=== PATIENT | female | born 1975 | race Caucasian/White ===

== ENCOUNTER → 2020-09-03 08:10 | Outpatient (BNVA) | payer OTHER, SELFPAY | PROVIDERS: PCP Internal Medicine; Visit Provider Surgery | DX: Z76.89 Persons encountering health services in other specified circumstances (principal) ==

== ENCOUNTER → 2020-09-05 08:23 | Outpatient (BNVA) | payer OTHER, SELFPAY | PROVIDERS: PCP Internal Medicine; Visit Provider Surgery | DX: Z76.89 Persons encountering health services in other specified circumstances (principal) ==

== ENCOUNTER 2020-09-05 08:50 | Outpatient (REF) | payer OTHER, SELFPAY ==
[2020-09-11 14:27] LABS: H Pylori Breath Test DETECTED (NOT DETECTED)
== END 2020-09-05 08:51 | disposition home or self-care (01) ==
LOC: HO.LNP 08:50
PROVIDERS: Visit Provider Surgery
DX: Z01.818 Encounter for other preprocedural examination (principal)
CPT/HCPCS: 83013

== ENCOUNTER 2020-09-06 08:20 | Outpatient (REF) | payer OTHER, SELFPAY ==
--- NOTE | 2020-09-06 08:30 | ECG_ITS ---
Test Reason : R06.02 - Shortness of breath Blood Pressure : / mmHG Vent. Rate : 076 BPM Atrial Rate : 076 BPM P-R Int : 164 ms QRS Dur : 076 ms QT Int : 380 ms P-R-T Axes : 047 -03 027 degrees QTc Int : 427 ms Normal sinus rhythm Low voltage QRS Borderline ECG When compared with ECG of 10-SEP-2019 09:39, No significant change was found Referred By: Astrid Guerra Electronically Signed By:SUE FARRELL MD
--- NOTE | 2020-09-06 09:03 | XR_ITS ---
EXAMINATION: XR CHEST 2 VIEWS CLINICAL INFORMATION: Shortness of breath. COMPARISON: Chest radiographs dated 09/10/2019. TECHNIQUE: Frontal and lateral views of the chest were obtained. FINDINGS: The heart, great vessels, pulmonary vasculature and mediastinum are normal. The lungs show no focal infiltrate, effusion or pneumothorax. There is no acute osseous abnormality. There is mild lower thoracic spondylosis. IMPRESSION: No active cardiopulmonary disease.
[2020-09-06 10:08] LABS: C Reactive Protein 1.83 mg/dL (< or = 0.50)
[2020-09-06 10:14] LABS: Alanine Aminotransferase 24 U/L (0-31); Alkaline Phosphatase 80 U/L (39-117); Anion Gap 11 (12-20); Aspartate Amino Transferase 21 U/L (5-31); Bilirubin Total 0.3 mg/dL (0.0-1.0); Blood Urea Nitrogen 10 mg/dL (9-16); Calcium 8.5 mg/dL (8.4-10.2); Carbon Dioxide 25 mmol/L (22-29); Chloride 106 mmol/L (96-108); Cholesterol 156 mg/dL; Estimated Glomerular Filt Rate > 60; Glucose Fasting 106 mg/dL (60-99); HDL Cholesterol 47 mg/dL; Iron 36 mcg/dL (30-160); LDL Cholesterol Calculated 90 mg/dl; Percent Iron Saturation 9 % (15-50); Potassium 4.2 mmol/l (3.3-5.1); Sodium 138 mmol/L (135-145); Total Iron Binding Capacity 400 mcg/dL (228-428); Total Protein 6.8 g/dL (6.5-8.0); Triglycerides 96 mg/dL; Unsaturated Iron Binding 364 ug/dL
[2020-09-06 10:35] LABS: Thyroid Stimulating Hormone 2.01 mIU/mL (0.32-4.0); Vitamin D 25-OH Total 26.2 ng/mL (>30)
[2020-09-09 16:32] LABS: Calcium (PTHI) 8.7 mg/dL (8.6-10.2); PTHI 102 pg/mL (14-64)
[2020-09-09 17:21] LABS: Zinc 64 mcg/dL (60-130)
[2020-09-09 21:14] LABS: Vitamin B12 248 pg/mL (200-900)
[2020-09-11 12:31] LABS: Vitamin B1 6 nmol/L (8-30)
[2020-09-11 17:11] LABS: Vitamin A 37 mcg/dL (38-98)
== END 2020-09-06 08:21 | disposition home or self-care (01) ==
LOC: HO.LAB 08:20
PROVIDERS: PCP Internal Medicine; Visit Provider Surgery
DX: Z01.818 Encounter for other preprocedural examination (principal); Z01.810 Encounter for preprocedural cardiovascular examination; R06.02 Shortness of breath
CPT/HCPCS: 71046; 80053; 80061; 82306; 82607; 83540; 83970; 84425; 84443; 84590; 84630; 86140; 93005

== ENCOUNTER → 2020-09-17 08:33 | Outpatient (BNVA) | payer OTHER, SELFPAY | PROVIDERS: PCP Internal Medicine; Visit Provider Surgery | DX: Z76.89 Persons encountering health services in other specified circumstances (principal) ==

== ENCOUNTER 2020-09-20 15:16 | Outpatient (REF) | payer OTHER, SELFPAY | END 2020-09-20 15:17 | disposition home or self-care (01) | LOC: HO.LAB 15:16 | PROVIDERS: Visit Provider Internal Medicine | DX: Z13.89 Encounter for screening for other disorder (principal) ==

== ENCOUNTER → 2020-10-14 08:52 | Outpatient (BNVA) | payer OTHER, SELFPAY | PROVIDERS: PCP Advanced Practice Midwife; Visit Provider Physician Assistant | DX: Z76.89 Persons encountering health services in other specified circumstances (principal) ==

== ENCOUNTER 2020-10-16 08:00 | Outpatient (RCR) | payer OTHER, SELFPAY ==
[2020-10-16 15:32] LABS: H Pylori Breath Test NOT DETECTED (NOT DETECTED)
== END 2021-01-14 07:20 | disposition home or self-care (01) ==
LOC: HO.OT 08:00
PROVIDERS: Visit Provider Internal Medicine
DX: M25.521 Pain in right elbow (principal)
CPT/HCPCS: 83013; 97035; 97110; 97140; 97165; 97530

== ENCOUNTER 2020-10-16 15:20 | Outpatient (REF) | payer OTHER, SELFPAY ==
[2020-10-22 12:46] LABS: Vitamin B1 13 nmol/L (8-30)
== END 2020-10-16 15:21 | disposition home or self-care (01) ==
LOC: HO.LAB 15:20
PROVIDERS: PCP Internal Medicine; Visit Provider Surgery
DX: E51.9 Thiamine deficiency, unspecified (principal)
CPT/HCPCS: 84425

== ENCOUNTER → 2020-11-11 09:09 | Outpatient (BNVA) | payer OTHER, SELFPAY | PROVIDERS: PCP Internal Medicine; Referring Provider Advanced Practice Midwife; Visit Provider Surgery | DX: Z76.89 Persons encountering health services in other specified circumstances (principal) ==

== ENCOUNTER → 2020-11-26 08:16 | Outpatient (BNVA) | payer OTHER, SELFPAY | PROVIDERS: PCP Internal Medicine; Visit Provider Surgery | DX: Z76.89 Persons encountering health services in other specified circumstances (principal) ==

== ENCOUNTER → 2020-12-12 08:07 | Outpatient (BNVA) | payer OTHER, SELFPAY | PROVIDERS: PCP Internal Medicine; Visit Provider Surgery | DX: Z76.89 Persons encountering health services in other specified circumstances (principal) ==

== ENCOUNTER → 2020-12-18 08:53 | Outpatient (BNVA) | payer OTHER, SELFPAY | PROVIDERS: PCP Internal Medicine; Visit Provider Internal Medicine Endocrinology, Diabetes & Metabolism ==

== ENCOUNTER 2020-12-20 07:08 | Outpatient (REF) | payer OTHER, SELFPAY ==
[2020-12-20 08:03] LABS: Alanine Aminotransferase 28 U/L (0-31); Alkaline Phosphatase 88 U/L (39-117); Anion Gap 12 (12-20); Aspartate Amino Transferase 15 U/L (5-31); Bilirubin Total 0.4 mg/dL (0.0-1.0); Blood Urea Nitrogen 14 mg/dL (9-16); Calcium 9.1 mg/dL (8.4-10.2); Carbon Dioxide 26 mmol/L (22-29); Chloride 105 mmol/L (96-108); Estimated Glomerular Filt Rate > 60; Glucose Fasting 93 mg/dL (60-99); Magnesium 2.1 mg/dL (1.6-2.6); Phosphorus 3.8 mg/dL (2.7-4.5); Potassium 4.1 mmol/l (3.3-5.1); Sodium 139 mmol/L (135-145)
[2020-12-20 08:26] LABS: Free T4 (Free Thyroxine) 0.72 ng/dL (0.71-1.85); Thyroid Stimulating Hormone 3.56 uIU/mL (0.32-4.0); Vitamin D 25-OH Total 25.3 ng/mL (>30)
[2020-12-21 09:32] LABS: DHEA Sulfate 124 mcg/dL (19-231); Thyroglobulin Antibodies <1 IU/mL (< or = 1); Thyroid Peroxidase Antibodies 810 IU/mL (<9)
[2020-12-23 18:41] LABS: PTHI 53 pg/mL (14-64)
[2020-12-23 22:38] LABS: Adrenocorticotropic Hormone 37 pg/mL (6-50)
[2020-12-24 13:07] LABS: Alkaline Phosphatase Bone 10.5 mcg/L (5.0-18.8)
[2020-12-25 11:08] LABS: Vitamin D 25-OH, D2 <4 ng/mL; Vitamin D 25-OH, D3 38 ng/mL; Vitamin D 25-OH, Total 38 ng/mL (30-100)
[2020-12-25 21:48] LABS: 11-Deoxycortisol, LC/MS 53 ng/dL
[2020-12-26 00:13] LABS: VITAMIN D (1,25 OH) D3 57 pg/mL; Vit D (1,25-Dihydroxy) Total 57 pg/mL (18-72); Vitamin D (1,25 OH) D2 <8 pg/mL
[2020-12-26 14:27] LABS: Testosterone, Free 3.6 pg/mL (0.1-6.4); Testosterone, Total 29 ng/dL (2-45)
== END 2020-12-20 07:09 | disposition home or self-care (01) ==
LOC: HO.LAB 07:08
PROVIDERS: PCP Internal Medicine; Visit Provider Internal Medicine Endocrinology, Diabetes & Metabolism
DX: E28.1 Androgen excess (principal); E21.3 Hyperparathyroidism, unspecified
CPT/HCPCS: 36415; 80053; 82024; 82306; 82533; 82627; 82634; 82652; 83498; 83735; 83970; 84075; 84100; 84402; 84403; 84439; 84443; 86376; 86800

== ENCOUNTER 2020-12-23 15:30 | Outpatient (REF) | payer OTHER, SELFPAY ==
[2020-12-23 18:13] LABS: Creatinine, 24Hr Urine 1.8 G/Day (1.0-2.0); Total Volume 24 Hour Urine 1900 mL
[2020-12-25 17:12] LABS: Calcium, 24 Hr Urine 251 mg/24 h; Calcium/Creatinine Ratio 133 mg/g creat (30-275); Creatinine 24Hr Urine 1.88 g/24 h (0.50-2.15)
== END 2020-12-23 15:31 | disposition home or self-care (01) ==
LOC: HO.LNP 15:30
PROVIDERS: Visit Provider Internal Medicine Endocrinology, Diabetes & Metabolism
DX: E21.3 Hyperparathyroidism, unspecified (principal)
CPT/HCPCS: 82340; 82570

== ENCOUNTER → 2020-12-30 08:17 | Outpatient (BNVA) | payer OTHER, SELFPAY | PROVIDERS: PCP Internal Medicine; Visit Provider Surgery ==

== ENCOUNTER 2021-01-02 07:36 | Outpatient (REF) | payer OTHER, SELFPAY ==
[2021-01-03 13:13] LABS: Calcium (PTHI) 9.2 mg/dL (8.6-10.2); PTHI 62 pg/mL (14-64)
[2021-01-03 17:33] LABS: Calcium, Ionized 5.1 mg/dL (4.8-5.6)
[2021-01-03 23:06] LABS: Adrenocorticotropic Hormone <5 pg/mL (6-50)
[2021-01-08 09:33] LABS: Dexamethasone 556 ng/dL
== END 2021-01-02 07:37 | disposition home or self-care (01) ==
LOC: HO.LAB 07:36
PROVIDERS: Absent Provider Internal Medicine Endocrinology, Diabetes & Metabolism; PCP Internal Medicine; Visit Provider Internal Medicine
DX: E66.01 Morbid (severe) obesity due to excess calories (principal); E21.3 Hyperparathyroidism, unspecified
CPT/HCPCS: 36415; 80299; 82024; 82330; 82533; 83970

== ENCOUNTER 2021-01-07 15:46 | Outpatient (REF) | payer OTHER, SELFPAY ==
[2021-01-14 16:17] LABS: Saliva Cortisol <0.03 mcg/dL
== END 2021-01-07 15:47 | disposition home or self-care (01) ==
LOC: HO.LNP 15:46
PROVIDERS: Visit Provider Internal Medicine Endocrinology, Diabetes & Metabolism
DX: E66.01 Morbid (severe) obesity due to excess calories (principal)
CPT/HCPCS: 82530

== ENCOUNTER → 2021-01-16 09:58 | Outpatient (BNVA) | payer OTHER, SELFPAY | PROVIDERS: PCP Internal Medicine; Visit Provider Physician Assistant ==

== ENCOUNTER → 2021-01-21 13:52 | Outpatient (BNVA) | payer OTHER, SELFPAY | PROVIDERS: PCP Internal Medicine; Visit Provider Surgery | DX: Z01.818 Encounter for other preprocedural examination (principal); R06.02 Shortness of breath ==

== ENCOUNTER 2021-01-29 05:20 | Inpatient (IN) | payer OTHER, SELFPAY ==
[2021-01-14 13:01] VITALS: BMI 46.6
[2021-01-14 13:15] VITALS: BP 127/83; PULSE 75; RESP 20; O2SAT 97
--- NOTE | 2021-01-14 13:24 | P.CONAN_ITS ---
Documented by User: Leonora Pichardo 01/23/21 11:02 HPI - Anesthesia Eval Consult details Narrative: 45yo F for Gastrectomy Sleeve Hyperparathyroid: OK to proceed per endocrine workload encounter [facility] Active Problems Active Problems: All Active Problems (Updated 01/14/21 @ 13:11 by Elvira Edouard) Super obesity (Acute) Shortness of Breath (Acute) Body mass index (BMI) of 45.0-49.9 in adult (Acute) Annual physical exam (Acute) Elevated androgen levels (Acute) Hypovitaminosis D (Acute) Hyperparathyroidism (Acute) Morbid obesity due to excess calories (Acute) Right elbow pain (Acute) Past Medical History Medical History Elevated androgen levels Hyperparathyroidism Hypovitaminosis D Morbid obesity due to excess calories Morbid obesity with BMI of 50.0-59.9, adult Right elbow pain Super obesity Family History Family History Father Unknown family medical history Mother Diabetes HTN (hypertension) Brother No problems noted. Daughter Morbid obesity due to excess calories Daughter No problems noted. Son No problems noted. Sister No problems noted. Family history of problems with anesthesia: No Surgical History Surgical History History of bilateral breast reduction surgery History of section complicating History of laparoscopic cholecystectomy Hx of tubal ligation History of Problems with Anesthesia: No Social History Social History Household Members: Significant Other and Children Are you a primary childcare director to a significant other at home: No Do you presently have visiting nurse or other home services: No Alcohol intake: never Smoking Status: Never smoker Use of substances other than those prescribed or required for medical reasons: No Have you been hit, kicked, punched, or otherwise hurt by someone within the past year? 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 >4 mets with dami Meds Allergies Allergy/AdvReac Type Severity Reaction Status Date / Time aspirin [Aspirin] Allergy Severe swelling Verified 01/21/21 14:35 Home Medications Medication Instructions Recorded Confirmed Last Taken Type cholecalciferol (vitamin D3) 50 50 mcg PO DAILY 09/03/20 01/21/21 Unknown History mcg (2,000 unit) capsule multivitamin 1 tab PO DAILY 12/12/20 01/21/21 Unknown History Exam Exam Date and Time: January 14, 2021 1324 Height,Weight and Vital Signs: Height 5 ft 2 in Weight 115.666 kg Last Vital Signs Pulse 75 01/14/21 13:15 Resp 20 01/14/21 13:15 BP 127/83 01/14/21 13:15 Pulse Ox 97 01/14/21 13:15 Pertinent Lab Results Pertinent Lab Results: Lab Results 01/21/21 01/21/21 01/21/21 Range/Units 15:55 15:55 15:55 WBC 10.7 (4.8-10.8) X10*3/uL RBC 4.64 (4.20-5.50) X10*6/uL Hgb 10.8 L (12.0-16.0) g/dl Hct 34.7 L (37-47) % MCV 74.8 L (80-98) fL MCH 23.3 L (27.0-33.0) pg MCHC 31.1 (31.0-35.0) g/dl RDW 19.4 H (11.0-16.0) % Plt Count 303 (160-400) X10*3/uL MPV 11.2 (9.4-12.3) fL Immature Gran % (Auto) 0.3 (0.0-0.4) % Neut % (Auto) 71.8 (45-73) % Lymph % (Auto) 21.5 (20-40) % [place] % (Auto) 4.2 (2-11) % Eos % (Auto) 1.8 (0-4) % Baso % (Auto) 0.4 (0-2) % Lymph # (Auto) 2.3 (1.2-4.9) X10*3/uL [place] # (Auto) 0.5 (0.1-1.2) X10*3/uL Eos # (Auto) 0.2 (0.0-0.4) X10*3/uL Baso # (Auto) 0.0 (0.0-0.2) X10*3/uL Abs Immat Gran (auto) 0.03 (0.00-0.03) X10*3/uL Absolute Neuts (auto) 7.7 (2.0-8.3) X10*3/uL Absolute Nucleated RBC 0.000 (0.0-0.012) X10*3/uL Nucleated RBC % (auto) 0.0 (0.0-0.2) /100WBC PT 11.8 (10.8-13.0) SEC INR 1.0 (0.9-1.1) APTT 34.7 (24.1-38.0) SEC Sodium (135-145) mmol/L Potassium (3.3-5.1) mmol/L Chloride (96-108) mmol/L Carbon Dioxide (22-29) mmol/L Anion Gap (12-20) BUN (9-16) mg/dL Creatinine (0.5-1.4) mg/dL Estim Creat Clear Calc Estimated GFR Random Glucose (60-115) mg/dL Calcium (8.4-10.2) mg/dL Albumin (3.5-5.0) g/dL 25-OH Vitamin D Total (>30) ng/mL Urine Color PINK Urine Appearance HAZY Urine pH 7.5 (5.0-8.0) Ur Specific [place] 1.015 (1.005-1.025) Urine Protein NEG (NEG-TRACE) MG/DL Urine Glucose (UA) NEG (NEG) MG/DL Urine Ketones NEG (NEG) MG/DL Urine Blood 3+ H (NEG) Urine Nitrite NEG (NEG) Ur Leukocyte Esterase NEG (NEG) Urine RBC 50-75 H (0) /HPF Urine WBC 0 (0-4) /HPF Ur Squamous Epith Cells NONE /LPF Urine Bacteria NONE /LPF Blood Type Antibody Screen 01/21/21 01/21/21 Range/Units 15:55 15:55 WBC (4.8-10.8) X10*3/uL RBC (4.20-5.50) X10*6/uL Hgb (12.0-16.0) g/dl Hct (37-47) % MCV (80-98) fL MCH (27.0-33.0) pg MCHC (31.0-35.0) g/dl RDW (11.0-16.0) % Plt Count (160-400) X10*3/uL MPV (9.4-12.3) fL Immature Gran % (Auto) (0.0-0.4) % Neut % (Auto) (45-73) % Lymph % (Auto) (20-40) % [place] % (Auto) (2-11) % Eos % (Auto) (0-4) % Baso % (Auto) (0-2) % Lymph # (Auto) (1.2-4.9) X10*3/uL [place] # (Auto) (0.1-1.2) X10*3/uL Eos # (Auto) (0.0-0.4) X10*3/uL Baso # (Auto) (0.0-0.2) X10*3/uL Abs Immat Gran (auto) (0.00-0.03) X10*3/uL Absolute Neuts (auto) (2.0-8.3) X10*3/uL Absolute Nucleated RBC (0.0-0.012) X10*3/uL Nucleated RBC % (auto) (0.0-0.2) /100WBC PT (10.8-13.0) SEC INR (0.9-1.1) APTT (24.1-38.0) SEC Sodium 137 (135-145) mmol/L Potassium 4.6 (3.3-5.1) mmol/L Chloride 104 (96-108) mmol/L Carbon Dioxide 25 (22-29) mmol/L Anion Gap 13 (12-20) BUN 17 H (9-16) mg/dL Creatinine 0.64 (0.5-1.4) mg/dL Estim Creat Clear Calc 135.2 Estimated GFR > 60 Random Glucose 98 (60-115) mg/dL Calcium 9.0 (8.4-10.2) mg/dL Albumin 4.1 (3.5-5.0) g/dL 25-OH Vitamin D Total 30.2 (>30) ng/mL Urine Color Urine Appearance Urine pH (5.0-8.0) Ur Specific [place] (1.005-1.025) Urine Protein (NEG-TRACE) MG/DL Urine Glucose (UA) (NEG) MG/DL Urine Ketones (NEG) MG/DL Urine Blood (NEG) Urine Nitrite (NEG) Ur Leukocyte Esterase (NEG) Urine RBC (0) /HPF Urine WBC (0-4) /HPF Ur Squamous Epith Cells /LPF Urine Bacteria /LPF Blood Type O Positive Antibody Screen NEGATIVE Narrative Narrative: EKG Normal sinus rhythm Low voltage QRS Borderline ECG When compared with ECG of 10-SEP-2019 09:39, No significant change was found Airway Mallampati Class: I TM Dist: >3cm Neck ROM: Full Loose/Missing/Broken Teeth: No Heart: RRR Lungs: CTAB Assessment and Plan Assessment Anesthesia Assessment: Anesthesia Plan Discussed and PAT Visit Documented by User: Rnadell Maher 01/29/21 09:16 PMF Past Medical History Medical History Elevated androgen levels Hyperparathyroidism Hypovitaminosis D Morbid obesity due to excess calories Morbid obesity with BMI of 50.0-59.9, adult Right elbow pain Super obesity Family History Family History Father Unknown family medical history Mother Diabetes HTN (hypertension) Brother No problems noted. Daughter Morbid obesity due to excess calories Daughter No problems noted. Son No problems noted. Sister No problems noted. Surgical History Surgical History History of bilateral breast reduction surgery History of section complicating History of laparoscopic cholecystectomy Hx of tubal ligation Social History Social History Household Members: Significant Other and Children Are you a primary childcare director to a significant other at home: No Do you presently have visiting nurse or other home services: No Alcohol intake: never Smoking Status: Never smoker Use of substances other than those prescribed or required for medical reasons: No Have you been hit, kicked, punched, or otherwise hurt by someone within the past year? 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 Meds Allergies Allergy/AdvReac Type Severity Reaction Status Date / Time aspirin [Aspirin] Allergy Severe swelling Verified 01/21/21 14:35 Home Medications Medication Instructions Recorded Confirmed Last Taken Type cholecalciferol (vitamin D3) 50 50 mcg PO DAILY 09/03/20 01/21/21 Unknown History mcg (2,000 unit) capsule multivitamin 1 tab PO DAILY 12/12/20 01/21/21 Unknown History Exam Airway Mallampati Class: II TM Dist: >3cm Neck ROM: Full Loose/Missing/Broken Teeth: No Heart: [id number]+[id number] Lungs: cta b/l Assessment and Plan Assessment Anesthesia Assessment: Anesthesia Plan Discussed, PAT Visit and Chart Reviewed Final Anesthetic Review NPO: Yes ASA Class: III Final Preanesthetic Review: No Changes in Pt Med Stat, Meds/Allgs Chart Reviewed, Consent Obtained/Reviewed and Anes Risks/Benef Reviewed Patient Risk: Intermediate Procedure Risk: Low Assessment/Block/Sedation in SS: Assess/Block/Sedation-SS Anesthetic Plan Anesthetic Plan: GA and Agree w/ Assess. and Plan Disposition: Standard PACU
[2021-01-21 16:15] LABS: MANUAL DIFF FLAG NO
[2021-01-21 16:16] LABS: Glucose Urine UA NEG (NEG); Leukocyte Esterase Urine NEG (NEG); Nitrite Urine NEG (NEG); PH 7.5 (5.0-8.0); Specific Gravity - Urine 1.015 (1.005-1.025); Urine Blood 3+ (NEG); Urine Ketones NEG (NEG); Urine Protein NEG (NEG-TRACE)
[2021-01-21 16:19] LABS: Basophils Percent Auto 0.4 % (0-2); Eosinophils Absolute Auto 0.2 X10*3/uL (0.0-0.4); Eosinophils Percent Auto 1.8 % (0-4); Hematocrit 34.7 % (37-47); Hemoglobin 10.8 g/dl (12.0-16.0); Imm Gran Abs Auto 0.03 X10*3/uL (0.00-0.03); Imm Gran Pct Auto 0.3 % (0.0-0.4); Lymphocytes Absolute Auto 2.3 X10*3/uL (1.2-4.9); Lymphocytes Percent Auto 21.5 % (20-40); Mean Corpuscular HGB Conc 31.1 g/dl (31.0-35.0); Mean Corpuscular Hemoglobin 23.3 pg (27.0-33.0); Mean Corpuscular Volume 74.8 fL (80-98); Mean Platelet Volume 11.2 fL (9.4-12.3); Monocytes Absolute Auto 0.5 X10*3/uL (0.1-1.2); Monocytes Percent Auto 4.2 % (2-11); Neutrophils Absolute Auto 7.7 X10*3/uL (2.0-8.3); Neutrophils Percent Auto 71.8 % (45-73); Platelet Count 303 X10*3/uL (160-400); Red Blood Count 4.64 X10*6/uL (4.20-5.50); Red Cell Distribution Width 19.4 % (11.0-16.0); White Blood Count 10.7 X10*3/uL (4.8-10.8)
[2021-01-21 16:36] LABS: Albumin Level 4.1 g/dL (3.5-5.0); Anion Gap 13 (12-20); Blood Urea Nitrogen 17 mg/dL (9-16); Carbon Dioxide 25 mmol/L (22-29); Chloride 104 mmol/L (96-108); Creatinine Clr Calc Pharmacy 135.2; Estimated Glomerular Filt Rate > 60; Glucose Random 98 mg/dL (60-115); Potassium 4.6 mmol/L (3.3-5.1); Sodium 137 mmol/L (135-145)
[2021-01-21 16:45] LABS: Prothrombin Time 11.8 SEC (10.8-13.0)
[2021-01-21 16:47] LABS: Partial Thromboplastin Time 34.7 SEC (24.1-38.0)
[2021-01-21 16:49] LABS: Appearance Urine HAZY; Color Urine PINK
[2021-01-21 16:58] LABS: Vitamin D 25-OH Total 30.2 ng/mL (>30)
[2021-01-21 17:18] LABS: RBC Urine 50-75 /HPF (0); WBC Urine 0 /HPF (0-4)
--- NOTE | 2021-01-28 16:47 | MHC.SHP ---
Pre-Procedural Eval Section B Chief Complaint: obesity Allergies: Allergies Allergy/AdvReac Type Severity Reaction Status Date / Time aspirin [Aspirin] Allergy Severe swelling Verified 01/21/21 14:35 Plan I have reviewed the history and physical and performed a pertinent physical examination on my patient. No changes have occurred unless specified.
[2021-01-29] VITALS (19 sets, daily range): BP systolic 123–151; BP diastolic 72–96; PULSE 75–97; RESP 14–20; TEMP 36.2–37.2; O2SAT 94–100
[2021-01-29 07:41] LABS: COVID-19 Test Negative (Negative); IDNOW Serial# 9DD0AD1C
[2021-01-29] MEDS: Lactated Ringers 1,000 ML 100 ML IVCONT (07:55)
--- NOTE | 2021-01-29 10:01 | PM.DS ---
DS: Providers Provider Date of Service: 01/30/21 Date of admission: 01/29/21 05:20 Primary care physician: Maria Isabel Tolliver MD DS: Medications Discharge Medications Home Medications: Home Medications Medication Instructions Recorded Confirmed cholecalciferol (vitamin D3) 50 50 mcg PO DAILY 09/03/20 01/21/21 mcg (2,000 unit) capsule multivitamin 1 tab PO DAILY 12/12/20 01/21/21 Previous Rx's Medication Instructions Recorded acetaminophen 500 mg tablet 1,000 mg PO Q6H PRN #30 tab 01/21/21 docusate sodium 100 mg capsule 100 mg PO BID #30 cap 01/21/21 famotidine 20 mg tablet 20 mg PO DAILY #30 tab 01/21/21 ondansetron HCl 4 mg tablet 4 mg PO Q6H PRN #30 tab 01/21/21 simethicone 80 mg chewable tablet 80 mg PO TID-QID PRN #30 tab 01/21/21 DS: Summary Time Spent with Patient Time attestation: DATE OF SERVICE: January 29, 2021 ADMITTING DIAGNOSES: morbid obesity DISCHARGE DIAGNOSES: same, s/p laparoscopic sleeve gastrectomy and repair of hiatal hernia PROCEDURE PERFORMED: DISCHARGE MEDICATIONS: 1. Simethicone 80mg q4h prn gas 2. Ondansetron 4mg po tid prn nausea 3. Famotidine 20mg po bid 4. Docusate sodium 100mg po bid DISCHARGE INSTRUCTIONS: The patient should continue on the stage III bariatric diet, which includes 3 protein shakes of at least 20- 30g of protein on a daily basis. The patient was encouraged to avoid drinking liquids with her protein shakes. She should wait 30-45 minutes in between her meals and drinking water. She should drink at least 40-60 ounces of water on a daily basis. She should ambulate while at home to avoid any blood clots in her lower extremities. She should call with any questions or concerns such as increase in abdominal pain, persistent nausea, vomiting, redness and drainage from her incisions, fever, chills, shortness of breast, or chest pain beyond what is normal for her. The patient should avoid all heavy lifting greater than 5 pounds for the next 4 weeks. The patient is already scheduled to follow up with me in 2 weeks' time, but should call the office with any questions prior to that follow up appointment. The patient should not advance her diet until she is seen in the office for the 2 week appointment. HOSPITAL COURSE: The patient was admitted after undergoing laparoscopic sleeve gastrectomy. She was started on stage II diet and was tolerating well without nausea or vomiting. Her pain was controlled on IV Dilaudid. All labs were within normal limits. On post-operative day #2 she was feeling better, nausea and epigastric pain improved and she was tolerating stage III bariatric diet well. She was discharged home. DISCHARGE DISPOSITION: Home.Total time spent providing and/or coordinating discharge services: Discharge coordination time: Less than 30 minutes Physical Exam Vital Signs: Vital Signs: Last Vital Signs Temp 97.3 F 01/29/21 07:35 Pulse 78 01/29/21 07:35 Resp 16 01/29/21 07:35 BP 123/84 01/29/21 07:35 Pulse Ox 97 01/29/21 07:35 Body Mass Index 46.6 DS: Data Data Completed and Pending Pending studies at discharge: Pending at discharge 01/29/21 08:49 Surgical [PTH] Routine Labs on day of discharge: Laboratory Results - last 24 hr 01/29/21 07:13 COVID-19 ([facility]) Negative COVID-19 Clin Com See Note Discharge Plan Discharge Anticipated Discharge Date/Time: 01/30/21 11:58 Patient Disposition: Home, Self-Care Referrals: Maria Isabel Reed MD [Primary Care Provider] - Discharge Medications: Continued acetaminophen [Tylenol Extra Strength] 500 mg tablet 1,000 mg PO Q6H PRN (Reason: pain) Qty: 30 RF: 1 famotidine [Pepcid AC] 20 mg tablet 20 mg PO DAILY Qty: 30 RF: 1 simethicone [Gas Relief (simethicone)] 80 mg tablet,chewable 80 mg PO TID-QID PRN (Reason: abdominal distention) Qty: 30 RF: 1 ondansetron HCl [Zofran] 4 mg tablet 4 mg PO Q6H PRN (Reason: nausea and vomiting) Qty: 30 RF: 1 docusate sodium [Colace] 100 mg capsule 100 mg PO BID Qty: 30 RF: 1 Discontinued multivitamin Tablet 1 tab PO DAILY RF: 0 cholecalciferol (vitamin D3) 50 mcg (2,000 unit) capsule 50 mcg PO DAILY RF: 0 Discharge Orders: Discharge Order (Routine); Ordered 01/30/21 Ordered By: Astrid Guerra Diet: other Activity on Discharge: No heavy lifting Stand Alone Forms: Patient Portal Discharge page Activity Restrictions/Additional Instructions: No tub baths, sex or returning to work until discussed at first post op appointment. No exercise, alcohol, tobacco or illegal drug use. Continue to use incentive spirometer hourly while awake. Walk in home for 5- 10 minutes every 2 hours during the first week. Continue phase 3 diet until first post op appointment. Follow all instructions in the bariatric handbook and call with any questions.Discharge Instructions 1. Please call your doctor or come back to the emergency room should any new symptoms arise. 2. You will receive a courtesy call from [facility] 24-48 hours after discharge. 3. Activity: abstain from alcohol, practice limited stair climbing, no bending, no driving, no exercise, no illicit substances, no lifting, no sex, no tub bath, no work. 4. Diet: continue stage 3 protein shakes until your [address] Guerra. 5. Dressing Change/Wound Care: Your incision is covered by surgical glue. If the area is tender, you may apply an ice pack for short intervals (no more than 20 minutes on, followed by at least 20 minutes off). Do not apply heat. Do not use creams, lotions, or topical antibiotics unless instructed to do so by your surgeon. These can cause infection or allergic reaction. 6. Call your doctor if: - Your temperature exceeds 101.5 F - You experience excessive pain or swelling - You have an unexpected reaction to medication - You have excessive bleeding - You experience continued vomiting/nausea - Your incision begins to separate - Your incision shows signs of infection such as increased redness, swelling, excessive pain, heat, or drainage (light blood or clear fluid is normal) 7. General instructions: No lifting greater than 5 lbs for the next 4 weeks[address] within 24 hours of taking narcotic pain medications. If you do not move your bowels in the next 2 days, please take milk of magnesia over the counter. Please follow the post op diet and do not advance your diet until you are seen in the office in about 2 weeks. Please walk around your home every hour or two to prevent blood clots from forming in your legs. You do not need to wake from sleeping to walk. Please sleep in a bed or couch to prevent kinking at the hips and knees. Please take your incentive spirometer (your lung cnc machine programmer) home with you and use it for the next few days to prevent pneumonias. You may shower, no hot tubs, baths or swimming pools. Please call the office with any questions or concerns such as increasing abdominal pain, fever, chills, shortness of breath, chest pain, leg pain or swelling, or redness or drainage from your incisions. Please stay on stage 3 diet which includes sugar free clear liquids such as ice pops and jello and broth and crystal light. Avoid all carbonation. Please drink 3 protein shakes with at least 25-30 grams of protein daily or 3 of the Celebrate 4:1 shakes which can be purchased in our office. The Celebrate shakes have all of the bariatric vitamins you need if you consume these shakes. If you are drinking other protein shakes, you will need to purchase the Celebrate multivitamins and calcium that we provide in the office (they will provide all the vitamins you need). Please make sure you are consuming at least 40-60 ounces of water in addition to your 3 protein shakes daily. Do not hesitate to contact the office with any questions at . Care Plan Goals: weight loss Health Concerns: morbid obesity Plan of Treatment: see discharge instructions Discharge Date/Time: 01/30/21 09:56
--- NOTE | 2021-01-29 10:04 | PM.OP ---
Brief Operative Note Date of Service: 01/29/21 Pre-op diagnosis: Morbid obesity, BMI 47.6 Post-op diagnosis: other (Same and hiatal hernia) Procedure: Laparoscopic sleeve gastrectomy, hiatal hernia repair, Lisy block, and intraoperative endoscopy Implants: covidien shilpa Surgeon: Astrid Guerra MD Anesthesia: GETA Cleaner And Preparer: Yanna Shi Estimated blood loss (mL): 10 Pathology: other (Partial gastrectomy) Condition: stable Disposition: PACU
--- NOTE | 2021-01-29 10:06 | P.OP_ITS ---
Operative Note Operative Note Date of Service: 01/29/21 Narrative: Patient was brought into the operating room and placed on the operating room table in the supine position. General anesthesia was induced. Normal DVT prophylaxis was instituted and the patient received 2 grams of cefotetan preoperatively. The abdomen was then prepped and draped in the normal sterile fashion. A safety time-out was performed. A mixture of 1% lidocaine with epinephrine and ??% Marcaine plain was used to a nesthetize the planned incision site in the left upper quadrant. A #11 scalpel was used to make a 5 mm left upper quadrant transverse incision through which a veress needle was placed. Three pops were heard going through the fascia. A saline drop test was used to confirm that the veress needle was intraabdominal. An optiview technique was then used to place a 5mm port in the left upper quadrant. A 5 mm 30 degree laproscope was then placed through this port and the abdominal cavity was surveyed and was normal with the exception of a single omental adhesion to the umbilicus. We later lysis adhesion with the LigaSure device. The patient was placed in reverse Trendelenburg positioning. A paola liver retractor was then placed in the subxyphoid position and it was used to hold up the left lobe of the liver to the abdominal wall. This was secured to the bed using the liver retractor schafer. A ECTOR block was then performed for pain control on the right side of the abdomen. A 5 mm port was placed in the right upper quadrant near the falciform ligament. A 12 mm port was then placed in the mid epigastrium. One additional 5 mm port was placed in the left upper quadrant just to the left of the placement of the first port. I then performed a ECTOR block on the left side of the abdomen. I then removed the epigastric fat pad; there was a 3 cm anterior hiatal hernia noted. I reapproximated the left and right crura with a total of 2 stitches of 2-0 ethibond and a laparoscopic knot pusher. There was no residual hiatal hernia. I then opened up the angle of His. We then gained entry into the lesser sac about 4-5 cm from the pylorus. I had anesthesia place a 34 [place] orogastric tube into the distal antrum to use as a sizing tool for gastric pouch size. I divided the short gastric vessels up to the angle of His. We then started the creation of the gastric pouch by firing a 60 mm purple load endostapler up the stomach about 4-5 cm from the pylorus. We completed the creation of the gastric pouch using a total of 4 firings of a 60 mm purple load stapler. We had anesthesia remove the orogastric tube, then we clamped across the distal antrum using a fired 60 mm endostapler. We flattened the patient and then instilled normal saline surrounding the newly created staple line. I then performed an on-table endoscopy. I passed the gastroscopy into the posterior oropharynx and down the esophagus evaluating the esophageal mucosa which was normal. There was no evidence of hiatal hernia. I passed the gastroscope into the gastric pouch and insufflated the gastric pouch. There was healthy pink mucosa and no evidence of active bleeding. There was no evidence of leak on laparoscopy. I desufflated the gastric pouch and removed the endoscope. I removed the endostapler from the abdomen and suctioned the fluid from the left upper quadrant. I then removed the partial gastrectomy specimen through the epigastric 12 mm port site. I reapproximated the 12 mm port using a 0 maxon suture with a laparoscopic suture passer. I instilled local anesthetic into the fascial closure site and tied the suture down at a pressure of 8-10 mm of Hg. There was no residual fascial defect. We removed the liver retractor and the left upper quadrant 5 mm ports under direct visualization. There was no evidence of any active bleeding. I desufflated the abdomen through the last remaining port and removed the laparoscope and 5 mm port. We reapproximated all incisions with a 4-0 monocryl subcuticular stitch. We cleaned and dried the abdominal skin and applied dermabond skin glue. All count were correct at the end of the case. The patient was awake and in stable condition prior to extubation and transfer to the recovery room.
[2021-01-29] MEDS: HYDROmorphone HCl 0.5 MG/0.5 ML SYRINGE IVPUSH ×2 (10:19→10:29)
[2021-01-29] MEDS: fentaNYL citrate/PF 100 MCG/2 ML VIAL 50 MCG IVPUSH (10:40)
[2021-01-29] MEDS: Famotidine/PF 20 MG/2 ML VIAL IVPUSH ×2 (10:54→21:29)
[2021-01-29] MEDS: Lactated Ringers 1,000 ML 125 ML IVCONT ×2 (12:36→20:07)
[2021-01-29] MEDS: ondansetron HCL 4 MG/2 ML VIAL IVPUSH ×2 (12:36→20:07)
[2021-01-29 13:17] LABS: Cholesterol 140 mg/dL; HDL Cholesterol 47 mg/dL; LDL Cholesterol Calculated 80 mg/dl; Triglycerides 67 mg/dL
[2021-01-29] MEDS: 0.9 % Sodium Chloride Flush 3 ML SYRINGE IVFLUSH (20:07)
[2021-01-29] MEDS: cefoTEtan disodium 2 GM in 0.9 % Sodium Chloride 50 ML IV (20:07)
[2021-01-30 04:00] VITALS: BP 156/86; PULSE 73; RESP 16; TEMP 36.3; O2SAT 97
[2021-01-30] MEDS: Lactated Ringers 1,000 ML 125 ML IVCONT (04:07)
[2021-01-30] MEDS: ondansetron HCL 4 MG/2 ML VIAL IVPUSH (04:07)
[2021-01-30 04:54] LABS: MANUAL DIFF FLAG NO
[2021-01-30 05:01] LABS: Basophils Percent Auto 0.3 % (0-2); Hemoglobin 10.4 g/dl (12.0-16.0); Imm Gran Abs Auto 0.05 X10*3/uL (0.00-0.03); Imm Gran Pct Auto 0.4 % (0.0-0.4); Lymphocytes Absolute Auto 1.4 X10*3/uL (1.2-4.9); Lymphocytes Percent Auto 10.5 % (20-40); Mean Corpuscular HGB Conc 30.6 g/dl (31.0-35.0); Mean Corpuscular Hemoglobin 23.3 pg (27.0-33.0); Mean Corpuscular Volume 76.2 fL (80-98); Mean Platelet Volume 11.3 fL (9.4-12.3); Monocytes Absolute Auto 0.7 X10*3/uL (0.1-1.2); Monocytes Percent Auto 5.3 % (2-11); Neutrophils Absolute Auto 11.1 X10*3/uL (2.0-8.3); Neutrophils Percent Auto 83.5 % (45-73); Platelet Count 243 X10*3/uL (160-400); Red Blood Count 4.46 X10*6/uL (4.20-5.50); Red Cell Distribution Width 19.2 % (11.0-16.0); White Blood Count 13.3 X10*3/uL (4.8-10.8)
[2021-01-30 05:51] LABS: Anion Gap 15 (12-20); Blood Urea Nitrogen 9 mg/dL (9-16); Calcium 8.4 mg/dL (8.4-10.2); Carbon Dioxide 19 mmol/L (22-29); Chloride 108 mmol/L (96-108); Creatinine Clr Calc Pharmacy 121.8; Estimated Glomerular Filt Rate > 60; Glucose Random 107 mg/dL (60-115); Potassium 4.6 mmol/L (3.3-5.1); Sodium 137 mmol/L (135-145)
--- NOTE | 2021-01-30 07:32 | PM.PNGS ---
Subjective Subjective Date of Service: 01/30/21 Interval history: Pt awake and alert this am. Has been ambulating and voiding on her own. DId not start ICS until this am and now brings it up to 1500 ml. She has been tolerating phase 2 bariatric diet, no nausea, emesis or abd pain this am. Physical Exam Vital Signs: Vital Signs: Last Vital Signs Temp 97.3 F 01/30/21 04:00 Pulse 73 01/30/21 04:00 Resp 16 01/30/21 04:00 BP 156/86 H 01/30/21 04:00 Pulse Ox 97 01/30/21 04:00 Body Mass Index 46.6 Const: General: cooperative, healthy appearing, comfortable, well developed, alert and awake Nutritional Appearance: obese Orientation/consciousness: patient oriented x3 Limitations: no limitations GI: Inspection: No distended and Yes incision (all clean and dry) Palpation (GI): Soft to palpation, not firm, nontender, no guarding, not rigid, no hernias and no masses Neuro: General: patient oriented x3 Extrem: General: Yes no pedal edema and Yes no calf tenderness Progress Note: A&P Assessment and plan (1) S/P laparoscopic sleeve gastrectomy: Problem details: POD #1 patient is doing quite well. She will be advanced to phase 3 diet now and will focus on ICS this am. Am labs pending, will review when resulted. Plan for discharge home later today after being seen by Dr. Guerra. Status: Acute (2) History of repair of hiatal hernia: Problem details: Follow all instructions for bariatric surgery. Status: Acute (3) Morbid obesity due to excess calories: Status: Acute Fall Risk Details Current Medications: Current Medications Generic Name Dose Route Start Last Admin Trade Name Freq PRN Reason Stop Dose Admin Famotidine 20 mg 01/29/21 12:06 01/29/21 21:29 Famotidine/Pf 20 Mg/2 Ml Vial IVPUSH 20 mg BID LINO Administration Hydromorphone HCl 0.25 mg 01/29/21 12:06 Hydromorphone Hcl 0.5 Mg/0.5 Ml Syringe IVPUSH Q4H PRN Pain, Moderate (Pain Scale 4-6 Lactated Ringer's 1,000 mls @ 75 mls/hr 01/29/21 12:06 01/30/21 04:07 Lr IVCONT 125 mls/hr .[id number] LINO Administration Acetaminophen 1,000 mg in 100 mls @ 16.7 mls/hr 01/29/21 12:06 01/30/21 02:03 Ofirmev IV 16.7 mls/hr .Q6H LINO Administration Metoclopramide HCl 10 mg 01/29/21 12:06 Metoclopramide Hcl 10 Mg/2 Ml Vial IVPUSH Q6H PRN Nausea Ondansetron HCl 4 mg 01/29/21 12:06 01/30/21 04:07 Ondansetron Hcl 4 Mg/2 Ml Vial IVPUSH 4 mg Q8H LINO Administration Sodium Chloride 3 ml 01/29/21 16:00 01/30/21 07:06 0.9 % Sodium Chloride Flush 3 Ml Syringe IVFLUSH Not Given QSHIFT LINO Time Spent With Patient Time: Total time spent is greater than 50% in coordination of care (as documented) at patient's floor/unit and/or counseling patient:15 minutes Time with patient: 15 - 24 minutes Procedures Date of Service Date of Service: 01/30/21
[2021-01-30 07:42] VITALS: BP 148/95; PULSE 86; RESP 16; TEMP 36.6; O2SAT 98
--- NOTE | 2021-01-30 09:00 | MHC.CM.PN ---
PATIENT IS DISCHARGED HOME WITH NO NEED FOR SERVICES. SHE IS FUNCTIONALLY INDEPENDENT. RN AWARE OF PLAN
[2021-01-30] MEDS: Famotidine/PF 20 MG/2 ML VIAL IVPUSH (09:04)
--- NOTE | 2021-01-30 16:36 | HO.POSTANES ---
Post Anesthesia Evaluation Post Anesthesia Evaluation Vital Signs: Vital Signs Temp Pulse Resp BP Pulse Ox 01/30/21 07:42 97.8 F 86 16 148/95 H 98 Anesthesia: General Endotracheal-GETA Mental Status: Awake Pain Control: Satisfactory Nausea/Vomiting: None Hydration: Adequate Anesthesia-Related Issues: No Anes. Related Issues
== END 2021-01-30 09:56 | disposition home or self-care (01) | DRG 403 ==
LOC: HO.SSSA 10:00 → HO.S3 10:44
PROVIDERS: Physician Assistant; Admitting Provider Surgery; PCP Internal Medicine; Visit Provider Surgery
PROC: 0DB64Z3 Excision of Stomach, Percutaneous Endoscopic Approach, Vertical (ICD-10-PCS; CPT 43845; principal; 2021-01-29 09:10)
DX: E66.01 Morbid (severe) obesity due to excess calories (principal); K44.9 Diaphragmatic hernia without obstruction or gangrene; Z68.42 Body mass index [BMI] 45.0-49.9, adult; Z20.822 Contact with and (suspected) exposure to COVID-19; Z79.899 Other long term (current) drug therapy
CPT/HCPCS: 36415; 80048; 80061; 81001; 82040; 82306; 85025; 85610; 85730; 86850; 86900; 86901; 87635; 88307; 88342; C1776; J0131; J1100; J1170; J2250; J2405; J3010

== ENCOUNTER → 2021-02-13 15:43 | Outpatient (BNVA) | payer OTHER, SELFPAY | PROVIDERS: PCP Internal Medicine; Visit Provider Surgery ==

== ENCOUNTER → 2021-03-13 13:25 | Outpatient (BNVA) | payer OTHER, SELFPAY | PROVIDERS: PCP Internal Medicine; Visit Provider Physician Assistant ==

== ENCOUNTER → 2021-07-15 09:38 | Outpatient (BNVA) | payer OTHER, SELFPAY | PROVIDERS: PCP Internal Medicine; Visit Provider Surgery ==

== ENCOUNTER → 2021-08-28 08:05 | Outpatient (BNVA) | payer OTHER, SELFPAY | PROVIDERS: PCP Internal Medicine; Visit Provider Dietitian, Registered | DX: E66.01 Morbid (severe) obesity due to excess calories (principal) | CPT/HCPCS: 97803 ==

== ENCOUNTER → 2021-11-10 07:59 | Outpatient (BNVA) | payer OTHER, SELFPAY | PROVIDERS: PCP Internal Medicine; Visit Provider Physician Assistant Surgical ==

== ENCOUNTER 2021-11-25 08:25 | Outpatient (REF) | payer OTHER, SELFPAY ==
[2021-11-25 08:44] LABS: MANUAL DIFF FLAG NO
[2021-11-25 09:21] LABS: Basophils Percent Auto 0.5 % (0-2); Eosinophils Absolute Auto 0.1 X10*3/uL (0.0-0.4); Eosinophils Percent Auto 1.5 % (0-4); Hematocrit 38.3 % (37.0-47.0); Imm Gran Abs Auto 0.01 X10*3/uL (0.00-0.03); Imm Gran Pct Auto 0.2 % (0.0-0.4); Lymphocytes Absolute Auto 1.8 X10*3/uL (1.2-4.9); Lymphocytes Percent Auto 29.2 % (20-40); Mean Corpuscular HGB Conc 31.3 g/dl (31.0-35.0); Mean Corpuscular Hemoglobin 25.8 pg (27.0-33.0); Mean Corpuscular Volume 82.2 fL (80.0-98.0); Mean Platelet Volume 11.5 fL (9.4-12.3); Monocytes Absolute Auto 0.4 X10*3/uL (0.1-1.2); Monocytes Percent Auto 5.7 % (2-11); Neutrophils Absolute Auto 3.9 x10*3/uL (2.0-8.3); Neutrophils Percent Auto 62.9 % (45-73); Platelet Count 282 X10*3/uL (160-400); Red Blood Count 4.66 X10*6/uL (4.20-5.50); Red Cell Distribution Width 14.6 % (11.0-16.0); White Blood Count 6.1 X10*3/uL (4.8-10.8)
[2021-11-25 09:30] LABS: Estimated Average Glucose 111 mg/dL; Hemoglobin A1c % 5.5 %
[2021-11-25 09:58] LABS: Alanine Aminotransferase 12 U/L (0-31); Albumin Level 4.4 g/dL (3.5-5.0); Alkaline Phosphatase 79 U/L (39-117); Anion Gap 11 (12-20); Aspartate Amino Transferase 15 U/L (5-31); Bilirubin Total 0.5 mg/dL (0.0-1.0); Blood Urea Nitrogen 12 mg/dL (9-16); C Reactive Protein 0.33 mg/dL (< or = 0.50); Calcium 9.8 mg/dL (8.4-10.2); Carbon Dioxide 27 mmol/L (22-29); Chloride 106 mmol/L (96-108); Cholesterol 189 mg/dL; Estimated Glomerular Filt Rate > 60; Glucose Fasting 95 mg/dL (60-99); HDL Cholesterol 53 mg/dL; Iron 64 mcg/dL (30-160); LDL Cholesterol Calculated 114 mg/dl; Percent Iron Saturation 14 % (15-50); Potassium 4.5 mmol/L (3.3-5.1); Sodium 139 mmol/L (135-145); Total Iron Binding Capacity 450 mcg/dL (228-428); Total Protein 7.2 g/dL (6.5-8.0); Triglycerides 110 mg/dL; Unsaturated Iron Binding 386 ug/dL
[2021-11-25 10:08] LABS: Thyroid Stimulating Hormone 2.14 uIU/mL (0.32-4.0); Vitamin D 25-OH Total 19.6 ng/mL (>30)
[2021-11-25 10:18] LABS: Vitamin B12 163 pg/mL (200-900)
[2021-11-28 07:32] LABS: Zinc 70 mcg/dL (60-130)
[2021-11-28 12:26] LABS: Vitamin B1 9 nmol/L (8-30)
[2021-12-01 10:56] LABS: Vitamin A 35 mcg/dL (38-98)
== END 2021-11-25 08:26 | disposition home or self-care (01) ==
LOC: HO.LAB 08:25
PROVIDERS: Visit Provider Surgery
DX: Z01.818 Encounter for other preprocedural examination (principal); K21.9 Gastro-esophageal reflux disease without esophagitis; Z90.3 Acquired absence of stomach [part of]
CPT/HCPCS: 36415; 80053; 80061; 82306; 82607; 83036; 83540; 84425; 84443; 84590; 84630; 85025; 86140

== ENCOUNTER → 2022-01-29 07:41 | Outpatient (BNVA) | payer OTHER, SELFPAY | PROVIDERS: PCP Internal Medicine; Referring Provider Physician Assistant; Visit Provider Physician Assistant Surgical ==

== ENCOUNTER 2022-02-23 08:04 | Outpatient (REF) | payer OTHER, SELFPAY ==
--- NOTE | ~2022-02-23 | MM_ITS ---
EXAMINATION: MM SCREENING DIGITAL BREAST TOMOSYNTHESIS, BILATERAL CLINICAL INFORMATION: Screening. Asymptomatic. Prior history reduction mammoplasty. The lifetime risk of breast cancer based on the Tyrer-Cuzick Model is 7%. COMPARISON: Mammography: 08/27/2020 (baseline) TECHNIQUE: Digital breast tomosynthesis is performed in both the craniocaudal and mediolateral oblique views along with computer-aided detection (CAD). Synthesized 2D images are generated from the tomosynthesis. Additional left cleavage view is provided. FINDINGS: There are scattered areas of fibroglandular density (ACR BI-RADS breast composition Category b). There are no significant masses, abnormal calcifications, or other abnormalities. There is minor scarring consistent with the reduction mammoplasty similar to prior baseline exam. No significant changes. Benign-appearing granulomatous calcifications and left axillary node again noted. No significant changes. MM/MM tomosynthesis screening BI IMPRESSION: No mammographic evidence of malignancy. ASSESSMENT: BI-RADS 2: Benign RECOMMENDATION: Routine annual mammography screening. This patient's information was entered into a reminder system with a target due date for their next mammogram.
== END 2022-02-23 08:05 | disposition home or self-care (01) ==
LOC: HO.MAMMO 08:04
PROVIDERS: Visit Provider Physician Assistant
DX: Z12.31 Encounter for screening mammogram for malignant neoplasm of breast (principal)
CPT/HCPCS: 77063; 77067

== ENCOUNTER 2022-11-10 08:22 | Outpatient (REF) | payer BC, SELFPAY ==
--- NOTE | ~2022-11-10 | US_ITS ---
EXAMINATION: US ABDOMEN LIMITED CLINICAL INFORMATION: Left upper quadrant abdominal swelling, mass and lump. COMPARISON: None. TECHNIQUE: Real-time imaging of the left umbilical region as indicated by the patient. FINDINGS: Supine ultrasound imaging of the left umbilical and periumbilical area reveals no focal mass, hernia or fluid collection. US/US abdomen limited IMPRESSION: Unremarkable limited ultrasound imaging of the left periumbilical area.
== END 2022-11-10 08:23 | disposition home or self-care (01) ==
LOC: HO.HMGCX 08:22
PROVIDERS: PCP Internal Medicine; Visit Provider Physician Assistant
DX: R19.02 Left upper quadrant abdominal swelling, mass and lump (principal)
CPT/HCPCS: 76705

== ENCOUNTER 2023-03-08 07:23 | Outpatient (REF) | payer BC, SELFPAY ==
--- NOTE | ~2023-03-08 | MM_ITS ---
EXAMINATION: MM SCREENING DIGITAL BREAST TOMOSYNTHESIS, BILATERAL CLINICAL INFORMATION: Screening. Asymptomatic. Prior history reduction mammoplasty over 10 years ago. The lifetime risk of breast cancer based on the Tyrer-Cuzick Model is 8%. COMPARISON: Mammography: 02/23/2022, 08/27/2020 (baseline) TECHNIQUE: Digital breast tomosynthesis is performed in both the craniocaudal and mediolateral oblique views along with computer-aided detection (CAD). Synthesized 2D images are generated from the tomosynthesis. Additional left MLO view is provided. FINDINGS: The breasts are almost entirely fatty (ACR BI-RADS breast composition Category a). The stromal markings are normal and similar to prior studies. No developing density or significant mass or architectural abnormality. No abnormal calcifications. The skin contours are smooth. The axilla are stable. Again, there are benign-appearing granulomatous calcifications within a left axillary node. MM/MM tomosynthesis screening BI IMPRESSION: No mammographic evidence of malignancy. ASSESSMENT: BI-RADS 2: Benign RECOMMENDATION: Routine annual mammography screening. This patient's information was entered into a reminder system with a target due date for their next mammogram.
== END 2023-03-08 07:24 | disposition home or self-care (01) ==
LOC: HO.MAMMO 07:23
PROVIDERS: PCP Internal Medicine; Visit Provider Internal Medicine
DX: Z12.31 Encounter for screening mammogram for malignant neoplasm of breast (principal)
CPT/HCPCS: 77063; 77067

== ENCOUNTER 2024-03-16 07:41 | Outpatient (REF) | payer BC, SELFPAY | END 2024-03-16 07:42 | disposition home or self-care (01) | LOC: HO.MAMMO 07:41 | PROVIDERS: PCP Internal Medicine; Visit Provider Internal Medicine | DX: Z12.31 Encounter for screening mammogram for malignant neoplasm of breast (principal) | CPT/HCPCS: 77063; 77067 ==

== ENCOUNTER → 2024-03-16 07:45 | Outpatient (BNV) | payer BC, SELFPAY | PROVIDERS: PCP Internal Medicine; Visit Provider Radiology Diagnostic Radiology | DX: Z12.31 Encounter for screening mammogram for malignant neoplasm of breast (principal) | CPT/HCPCS: 77063; 77067 ==

== ENCOUNTER 2025-01-30 09:42 | Outpatient (AMB) | payer BC, SELFPAY ==
[2025-01-30 09:53] VITALS: BP 134/82; PULSE 80; BMI 44.3
--- NOTE | 2025-01-30 09:53 | A.OFFPC_ITS ---
Vital Signs 01/30/25 09:53 Height 5 ft 2 in Weight 242 lb 4 oz BMI 44.3 BP 134/82 Blood Pressure Location Lt brachial Position Sitting Pulse 80 Pulse Source Palpation Intake Visit Reasons: PE Intake Note: Patient is here today for a physical. Hog Sticker Required: No Accompanied by: Self / Same As Patient Allergies aspirin [Aspirin] Allergy (Severe, Verified 01/30/25 10:29) swelling Medication List - Last Reconciled 01/30/25 by Dank Nguyen PA-C [Celebrate Jan+D PO BID] ketoconazole 2% 1 appl topical BID ibsvcgzdlxlj-gwo-gkpp-FA-vit K 45 mg iron- 800 mcg-120 mcg (Bariatric Multivitamins) 1 cap PO DAILY omeprazole 20 mg PO DAILY Tobacco use date assessed: 01/30/25 Dental Screening Dental Screen Date: 01/30/25 Did you have a dental visit in the last 12 months?: Yes Did you have a dental problem in the last 6 months where you did not have access to dental care?: No Was dental information given to patient?: Patient has dentist HPI PE HPI Details Patient is a 49 year-old female here today for annual physical.? ? Patient has a past medical history of obesity and is status post bariatric surgery with hernia repair and January of 2021. Unfortunately has gained weight back. she would like a 2nd opinion from bariatric surgery at [place]. Concern--> she does report having a daily morning headache that seems to dissipate throughout the day. She does admit to daytime somnolence. She has gained 50 lb since last office visit and there was concern here for obstructive sleep apnea. She also reports having to eat ice a lot. Concerns here for PICA. Will check a CBC. --> she also does report having chronic left upper quadrant abdominal pain. She feels there is a mass that she is able to palpate at times when she leans forward. She did get a CT of her abdomen and pelvis in 2021 that did not show any significant hernia. .. Vaccine: Willing to get flu vaccine today, up-to-date with Tdap . Mammo: Done in February of 2024 - BIRADS 1. .. 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 Colorectal cancer screening:? Willing to get colonoscopy ON LICENSE OF [facility] Medical History (Updated 01/31/25 @ 07:40 by Dank Nguyen PA-C) Intestinal malabsorption following gastrectomy BMI greater than 40 Encounter for pre-operative examination Elevated androgen levels Annual physical exam Hypovitaminosis D Hyperparathyroidism Body mass index (BMI) of 45.0-49.9 in adult Right elbow pain Morbid obesity with BMI of 50.0-59.9, adult Super obesity Surgical History Hx of tubal ligation History of laparoscopic cholecystectomy History of bilateral breast reduction surgery History of section complicating Family History Father Unknown family medical history Mother Diabetes HTN (hypertension) Brother No problems noted. Daughter Morbid obesity due to excess calories Daughter No problems noted. Son No problems noted. Sister No problems noted. 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 1. Little interest or pleasure in doing things: not at all 2. Feeling down, depressed, or hopeless: not at all 3. Trouble falling or staying asleep, or sleeping too much: more than half the days 4. Feeling tired or having little energy: not at all 5. Poor appetite or overeating: several days 6. Feeling bad about yourself - or that you are a failure or have let yourself or your family down: not at all 7. Trouble concentrating on things, such as reading the newspaper or watching television: several days 8. Moving or speaking so slowly that other people could have noticed. Or the opposite - being so fidgety or restless that you have been moving around a lot more than usual: not at all 9. Thoughts that you would be better off or of hurting yourself in some way: not at all Total score: 4 Depression Screening Interpretation: Positive Depression Screening Follow-up: Existing condition and Declines treatment Depression Screening Done: Yes 37035 - PHQ-9 Billing: Yes Source: Developed by Drs. Mani Billings, Thelma Edgar, Tha Roger and colleagues, with an educational mali from [employer]. Thrive Questionnaire Date Thrive assessed: 01/30/25 I am a: Patient What is your living situation today?: I have a steady place to live Within the past 12 months, did the food you bought not last and you didn't have the money to get more?: Never true Within the past 12 months, did you worry whether your food would run out before you got money to buy more?: Sometimes True Do you have trouble paying for medicines?: No Do you have trouble getting transportation to medical appointments?: No Do you have trouble paying your heating and electricity bill?: No Do you have trouble taking care of your child, family member or friend?: No Do you have trouble with day-to-day activities such as bathing, preparing meals, shopping, managing finances, etc.?: No Are you currently unemployed and looking for a job?: No Are you interested in more education?: No Please select the resources that you would like help with: None Currently or been in a relationship where the following occur: No concerns reported THRIVE Score: 1 AUDIT C Alcohol Use Questionnaire (AUDIT-C) 1. How often do you have a drink containing alcohol?: Monthly or less 2. How many drinks containing alcohol do you have on a typical day when you are drinking?: 1 or 2 3. How often do you have six or more drinks on one occasion?: Less than monthly Total Score: 2 ALYSSIA-7 AMB Questionnaire ALYSSIA-7 Date ALYSSIA - 7 assessed: 01/30/25 Feeling nervous, anxious, or on edge: 0 = Not at all Not being able to stop or control worryin = Several days Worrying too much about different things: 0 = Not at all Trouble relaxin = Several days Being so restless that it is hard to sit still: 0 = Not at all Becoming easily annoyed or irritable: 0 = Not at all Feeling afraid as if something awful might happen: 0 = Not at all Total ALYSSIA-7 score (0-4 normal; 5-9 mild; 10-14 moderate; 15-21 severe): 2 Source: Developed by Drs. Mani Billings, Thelma Edgar, Tha Roger and colleagues, with an educational mali from [employer]. ALYSSIA-7 Assessment Billing ALYSSIA-7 Assessment Tool: ALYSSIA-7 Assessment 29455 Review of Systems Const Denies body aches, Denies chills, Denies excessive sweating, Denies fatigue, Denies fever(s) and Denies headache(s) Eyes Denies blurry vision ENT Denies dysphagia, Denies vertigo, Denies dizziness, Denies headache(s), Denies hearing loss and Denies tinnitus Card Denies chest pain, Denies chest pain with activity, Denies syncope, Denies irregular heart rhythm and Denies dyspnea Resp Denies chest congestion, Denies cough, Denies hemoptysis, Denies dyspnea and Denies wheezing GI Denies abdominal pain, Denies melena, Denies hematochezia, Denies coffee ground emesis, Denies dysphagia, Denies diarrhea, Denies nausea and Denies vomiting Denies urinary frequency, Denies dysuria, Denies urinary hesitancy and Denies urinary urgency Musc Denies arthralgias, Denies limited range of motion, Denies muscle cramps and Denies muscle weakness Skin/Breast Denies rash and Denies skin ulcer Neuro Denies Abnormal speech present, Denies confusion, Denies vertigo, Denies dizziness, Denies syncope, Denies headache(s), Denies memory loss and Denies seizure-like activity Psych Denies anxiety, Denies confusion, Denies depression, Denies memory loss, Denies panic attacks and Denies paranoia Endo Denies excessive sweating, Denies fatigue, Denies flushing, Denies polydipsia and Denies polyuria Aller/Immun Denies wheezing Physical exam (Primary Care) Vital Signs: Last Vital Signs Pulse 80 01/30/25 09:53 BP 134/82 01/30/25 09:53 BMI result Body Mass Index 44.3 BMI Assessment/Plan discussion: High BMI High, discussed plan: lifestyle, weight reduction, dietary and physical activity Tobacco/Smoking Status: Tobacco use Status Tobacco use date assessed 01/30/25 01/30/25 10:00 Patient Tobacco Use Status Never used Tobacco 01/30/25 10:05 e-Cigarette/Vaping Use Never Used 01/30/25 10:05 PHQ-9: PHQ-9 Score PHQ-9: Total score 4 01/30/25 10:38 Depression Screening Interpretation: Positive Depression Screening Follow-up: Existing condition and Declines treatment Thrive Assessment: Date of Thrive Assessment Date Thrive assessed 01/30/25 01/30/25 10:03 Currently or been in a relationship where the following occur: No concerns reported Const General: cooperative, comfortable, no acute distress, alert and awake; No confusion Orientation/consciousness: oriented to person, oriented to place, patient oriented x3 and No confusion HENMT Head: Yes normocephalic Ears: external ears normal and TM's normal bilaterally Face and sinus: No sinus tenderness Mouth: Normal oral and palatal mucosa present and tongue normal Teeth and gingiva: dentition normal and gingiva normal Throat: Yes posterior oropharynx normal, Yes tonsils normal and Yes uvula midline Eyes Conjunctivae: conjunctivae normal Sclerae: sclerae normal Pupils: Equal, round and reactive pupils present EOM: EOMs intact bilaterally Direct Ophthalmoscopy: No no photophobia Neck Neck: Yes no lymphadenopathy, No tender and Yes no JVD Thyroid: Thyroid normal Carotids: no bruits Chest Chest palpation & inspection: no tenderness Resp Effort & Inspection: normal respiratory effort, no audible wheezes, not labored and no stridor Auscultation: no crackles, no rales, no rhonchi and no wheezes Cardio Jugular venous distension: no JVD Rate: regular rate, not bradycardic and not tachycardic Rhythm: regular rhythm Bruits: no carotid bruits Peripheral pulses: Peripheral pulses 2+ throughout GI Inspection: Yes normal to inspection, No abdominal wall ecchymosis and No visible herniation Palpation (GI): Soft to palpation, nontender, no guarding, not rigid and No hepatosplenomegaly present Auscultation: normoactive bowel sounds General: Yes no CVA tenderness Back/Spine/Pelvis Back: no CVA tenderness and No back tenderness Cervical Spine: cervical ROM normal Thoracic/Lumbar Spine: thoracic and lumbar spine normal to inspection, straight leg raise negative bilaterally, No thoraco-lumbar ROM limited and No lumbar spinal tenderness Skin Lesions: no lesions Rashes: no rashes Wounds: no wounds Neuro General: oriented to person, oriented to place, patient oriented x3, CN's II-XI intact bilaterally and No confusion Cranial nerves: Yes Equal, round and reactive pupils present and Yes Normal accommodation reflex present Cognition (Neuro): normal cognition Speech: No Abnormal speech present Gait exam (Neuro): Normal gait present Motor exam (neuro): 5/5 motor strength present throughout Extrem Right upper extremity: full ROM; no cyanosis Left upper extremity: full ROM; no cyanosis Right lower extremity: no edema Left lower extremity: no edema Psych Appearance: grossly normal Mental Status: mental status grossly normal Affect: normal affect Attitude: cooperative Thought process: Normal thought process present Office Procedures Flu Questionnaire Does the patient have a severe egg allergy?: No Does the patient have severe life threatening allergies?: No Does the patient have a fever or illness today?: No Has the patient ever had Guillain-Devens Syndrome?: No Has the patient ever had any past reaction to a flu shot?: No Immunizations Fluarix Triv [id number] (PF) 45 mcg (15 mcg x 3)/0.5 mL IM syringe Performing Provider: Dank Nguyen PA-C [facility] Administered by: WILLEM Burns on 01/30/25 10:38 2 Dose Route Admin Location Dispensed Lot Number Expiration Date NDC Chemist Inorganic 0.5 mL IM Left Deltoid 0.5 mL [id number] 05/28/25 [id number] [employer] VIS Given Date VIS Provided VIS Publication Date 01/30/25 Single Vaccine 21 Eligibility Eligibility Date Funding Source Not [facility] Eligible 01/30/25 Private Coding Level of Care Code Est Pt Prev Care 40-64y(09035) Diagnoses Annual physical exam Z00.00 Hypovitaminosis D E55.9 Class 3 obesity E66.813 Hirsutism L68.0 S/P laparoscopic sleeve gastrectomy Z98.84 Screening for diabetes mellitus (DM) Z13.1 Pica F50.89 Cervical cancer screening Z12.4 Left upper quadrant abdominal swelling, mass and lump R19.02 ALEX (obstructive sleep apnea) G47.33 Encounter for colorectal cancer screening Z12.11; Z12.12 MDD (major depressive disorder), recurrent episode, mild F33.0 Additional Codes ALYSSIA-7 Assessment Billing - ALYSSIA-7 Assessment Tool: ALYSSIA-7 Assessment 94236 ([id number]) PHQ-9 - 86469 - PHQ-9 Billing: Yes ([id number]) Assessment & Plan Assessment & Plan (1) Annual physical exam: Code(s): Z00.00 - Encounter for general adult medical examination without abnormal findings Category: Medical Plan: As per HPI (2) Hypovitaminosis D: Code(s): E55.9 - Vitamin D deficiency, unspecified Category: Medical Plan: Recheck vitamin-D level on upcoming labs. (3) Class 3 obesity: Code(s): E66.813 - Obesity, class 3 Category: Medical Plan: Patient does understand her BMI is over 40. Unfortunately has had gastric sleeve in the past to which she was able to lose weight though unfortunately has gained back the weight. She does not feel it bariatric surgery was effective for her. She is willing to try and new bariatric program for a 2nd opinion. (4) Hirsutism: Code(s): L68.0 - Hirsutism Category: Medical Plan: Patient having difficulty with weight reduction even status post bariatric surgery. She is showing signs and symptoms of her true ism thus will refer to OBGYN and start metformin to help her with weight reduction. (5) S/P laparoscopic sleeve gastrectomy: Code(s): Z98.84 - Bariatric surgery status Category: Surgical Plan: Patient bariatric surgery has failed. She is interested in 2nd opinion from bariatric program at [place] thus will place referral. (6) Screening for diabetes mellitus (DM): Code(s): Z13.1 - Encounter for screening for diabetes mellitus Category: Medical Plan: Anemia. As per HPI (7) Pica: Code(s): F50.89 - Other specified eating disorder Category: Medical Plan: She does admit to constantly eating ice. There was concern for PICA here. Will have patient tested for (8) Cervical cancer screening: Code(s): Z12.4 - Encounter for screening for malignant neoplasm of cervix Category: Medical Plan: Patient in need of cervical cancer screening (9) Left upper quadrant abdominal swelling, mass and lump: Code(s): R19.02 - Left upper quadrant abdominal swelling, mass and lump Category: Medical Plan: Patient has a several year history of left upper quadrant pain and feeling of a lump or mass. Has had a CT of her abdomen that did not show any hernia in 2021. She is requesting MRI for further evaluation. (10) ALEX (obstructive sleep apnea): Code(s): G47.33 - Obstructive sleep apnea (adult) (pediatric) Category: Medical Plan: Patient does have moderate risk for such as sleep apnea. She does report daytime somnolence and waking up with daily headache. Will send for home sleep study to evaluate for obstructive sleep apnea. (11) Encounter for colorectal cancer screening: Code(s): Z12.11 - Encounter for screening for malignant neoplasm of colon; Z12.12 - Encounter for screening for malignant neoplasm of rectum Category: Medical Plan: Patient willing to get colonoscopy (12) MDD (major depressive disorder), recurrent episode, mild: Code(s): F33.0 - Major depressive disorder, recurrent, mild Category: Medical Plan: Patient's PHQ-9 score positive for mild depression which has been existing condition for her. She is somewhat depressed due to constant garcia with her weight. She is not interested in mental health medication at this time and will like to set up appointment for 2nd opinion with bariatric program at [place]. Orders: Orders Influenza [id number] Immunization 01/30/25 Z23 - Encounter for immunization Vitamin B12 and Folate 01/30/25 E53.8 - Deficiency of other specified B group vitamins, F50.89 - Other specified eating disorder Vitamin A 01/30/25 Z98.84 - Bariatric surgery status Vitamin E 01/30/25 Z98.84 - Bariatric surgery status RT home sleep study 01/30/25 G47.33 - Obstructive sleep apnea (adult) (pediatric) IRON PROFILE 01/30/25 D50.9 - Iron deficiency anemia, unspecified, F50.89 - Other specified eating disorder Vitamin D 25-OH Total 01/30/25 F50.89 - Other specified eating disorder Complete Blood Count no Diff 01/30/25 F50.89 - Other specified eating disorder Comprehensive [place]. 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
--- OUTSIDE RECORDS SUMMARY | 2025-01-30 11:11 | XMS_ITS | Encounter Summary ---
Author Organization [employer] Address [address] [place] [address] [address] [place] [address] Care Team Providers Care Glass Loading Equipment Tender Name Role Phone Alexus Scott Primary Care Provider [phone] Encounter Details Date Type Department Care Team (Latest Contact Info) Description 04/14/2019 Abstract [facility]VERSION[facility] Dental, Provider, DDS Social History Tobacco Use Types Packs/Day Years Used Date Smoking Tobacco: Never Assessed Comments Unknown Sex and Gender Information Value Date Recorded Sex Assigned at Female 09/28/2022 10:18 AM EDT Legal Sex Female 10:18 AM EDT Gender Identity Female 09/28/2022 10:18 AM EDT Sexual Orientation Straight 09/28/2022 10 :18 AM EDT documented as of this encounter Plan of Treatment Not on file documented as of this encounter Visit Diagnoses Not on filedocumented in this encounter Care Teams Glass Loading Equipment Tender Relationship Specialty Start Date End Date Alexus Scott FNP [address] [place] [address] PCP - General Family Medicine 05/27/22 11/01/23 documented as of this encounter
--- OUTSIDE RECORDS SUMMARY | 2025-01-30 11:11 | XMS_ITS | Encounter Summary ---
Author Organization [employer] Address [address] [place] [address] [address] [place] [address] Care Team Providers Care Launch Check Out Name Role Phone Alexus Scott Primary Care Provider [phone] Encounter Details Date Type Department Care Team (Latest Contact Info) Description 10/18/2020 Abstract [facility] CONVERSIONS Dental, Provider, DDS Social History Tobacco [...] on filedocumented in this encounter Care Teams Launch Check Out Relationship Specialty Start Date End Date Alexus Scott FNP [address] [place] [address] PCP - General Family Medicine 05/27/22 11/01/23 documented as of this encounter
--- OUTSIDE RECORDS SUMMARY | 2025-01-30 11:11 | XMS_ITS | Encounter Summary ---
Author Organization [employer] Address [address] [place] [address] [address] [place] [address] Care Team Providers Care Customer Service Coordinator Name Role Phone Alexus Scott Primary Care Provider [phone] Encounter Details Date Type Department Care Team (Latest Contact Info) Description 02/25/2022 Abstract [facility]VERSION[facility] Dental, Provider, DDS Social History Tobacco [...] on filedocumented in this encounter Care Teams Customer Service Coordinator Relationship Specialty Start Date End Date Alexus Scott FNP [address] [place] [address] PCP - General Family Medicine 05/27/22 11/01/23 documented as of this encounter
--- OUTSIDE RECORDS SUMMARY | 2025-01-30 11:11 | XMS_ITS | Clinical Summary ---
Author Organization [employer] Address [address] [facility] [address] [place] [address] Care Team Providers Care Chargeback Specialist Name Role Phone Unavailable Primary Care Provider Unavailabl e Social History Tobacco Use Types Packs/Day Years Used Date Smoking Tobacco: Never Assessed Comments Unknown Sex and Gender Information Value Date Recorded Sex Assigned at Female 09/28/2022 10:18 AM EDT Legal Sex Female 10:18 AM EDT Gender Identity Female 09/28/2022 10:18 AM EDT Sexual Orientation Straight 09/28/2022 10 :18 AM EDT Last Filed Vital Signs Vital Sign Reading Time Taken Comments Blood Pressure 120/68 12/20/2019 12:01 AM EST Pulse 80 12/20/2019 12:01 AM EST Temperature - - Respiratory Rate - - Oxygen Saturation - - Inhaled Oxygen Concentration - - Weight 128 kg (282 lb) 12/20/2019 12:01 AM EST Height 160 cm (5' 3 ) 12/20/2019 12:01 AM EST Body Mass Index 49.95 12/20/2019 12:01 AM EST Plan of Treatment Health Maintenance Due Date Last Done Comments CT Colonography 1976 Colonoscopy 1976 Colorectal Cancer Screening 1976 Depression Screening 1976 FIT DNA/Cologuard 1976 FIT 1976 FOBT 1976 Sigmoidoscopy 1976 Alcohol/Substance Use Screening 1988 Tobacco Screening 1988 Family Planning (PISQ) 1991 Hepatitis B Vaccines (1 of 3 - 19+ 3-dose series) 1995 Pap Smear 1997 Mammogram 2016 Cervical Cancer Screening 07/21/2024 HPV/Cotest 07/21/2024 07/21/2019 COVID-19 Vaccine (3 - 2023-2 5 season) 2024 01/21/2021, 12/19/2020 Influenza Vaccine (#1) 2024 0, 08/14/2019, 03/27/2016 Zoster Vaccines (1 of 2) 2026 DTaP/Tdap/Td Vaccines (3 - T d or Tdap) 12/03/2030 12/03/2020, 03/27/2016 RSV Patients and Patients Aged 60 years or older (1 - 1-dose 75+ series) 2051 HIB Vaccines Aged Out No longer eligi ble based on patient's age to complete this topic HPV Vaccines Aged Out No longer eligi ble based on patient's age to complete this topic Hepatitis A Vaccines Aged Out No long er eligible based on patient's age to complete this topic IPV Vaccines Aged Out No longer eligi ble based on patient's age to complete this topic Meningococcal Vaccine Aged Out No garcia blas eligible based on patient's age to complete this topic Pneumococcal Vaccine: Pediatrics (0 to 5 Years) and At-Risk Patients (6 to 49) Years) Aged Out No longer eligible b ased on patient's age to complete this topic RSV under 20 months Aged Out No longe r eligible based on patient's age to complete this topic Rotavirus Vaccines Aged Out No longer eligible based on patient's age to complete this topic Procedures Procedure Name Priority Date/Time Associated Diagnosis Comments CEDRIC HISTORICAL HPV E6/E7 RFLX JOSE L 16 18/45 Routine 07/21/2019 9:47 AM EDT from Last 3 Months or Most Recently Relevant to Health Maintenance Results * HPV E6/E7 RFLX JOSE L 16 18/45 (07/21/2019 9:47 AM EDT) HPV mRNA E6/E7 Not Detected NOT DETECTED [facility] Comment: This test was performed using the APTIMA(R) HPV Assay ([employer] This assay detects E6/E7 viral messenger RNA (mRNA) from 14 high-risk HPV types (16,18,31,33,35,39,45,51, 52,56,58,59,66,68). For additional information please refer to: http://education.Bitzio[employer]Seratis/faq/VWA456f6 (This link is being provided for informational/ educational purposes only.) The analytical performance characteristics of this assay have been determined by [employer] [place], [place]. The modifications have not been cleared or approved by the FDA. This assay has been validated pursuant to the CLIA regulations and is used for clinical purposes. Please note: ??Effective 08/10/2016, HPV testing will be performed using [employer]'s APTIMA test which targets mRNA. Detecting mRNA instead of DNA, as in older methods, offers significant improvements in specificity. ADDITIONAL TESTING Not indicated () [facility] Comment: Test Performed by [employer], [employer] [facility] [place], [address] [place] [address] Wyatt Perez M.D., Ph.D., Director of Laboratories , [place] [id number] HPV 16 RNA Test not performed [facility] HPV 18/45 RNA Test not performed [facility] 07/21/2019 9:47 AM EDT us Rola Santana DO HISTORICAL/NON ORDERABLE LAB S Final Result [facility] [address] from Last 3 Months or Most Recently Relevant to Health Maintenance
--- OUTSIDE RECORDS SUMMARY | 2025-01-30 11:11 | XMS_ITS | Clinical Summary ---
Author Organization [address] [place] [address] [place] [phone] Phone Care Team Providers Care Moss Bleacher Name Role Phone Maria Isabel Tolliver MD Primary Care Provider [phone] Social History Tobacco Use Types Packs/Day Years Used Date Smoking Tobacco: Never Assessed Comments Unknown Sex and Gender Information Value Date Recorded Sex Assigned at Not on file Legal Sex Female 4:18 AM EST Gender Identity Not on file Sexual Orientation Not on file Plan of Treatment Health Maintenance Due Date Last Done Comments Breast Cancer Screening 1976 DTaP,Tdap,and Td Vaccines (1 - Tdap) 1995 Hepatitis B Vaccines (1 of 3 - 19+ 3-dose series) 1995 Cervical Cancer Screening: P ap Smear 1997 Colorectal Cancer Screening: Colonoscopy 12/27/2023 Depression Screening 12/27/2023 HIV Screening 12/27/2023 Hepatitis C Screening 12/27/2023 Social Influencers of Health Screening 12/27/2023 COVID-19 Vaccine ( - 2023-2 5 season) 2024 Influenza Vaccine (#1) 2024 02/14/2018 HIB Vaccines Aged Out No longer eligi [...] on patient's age to complete this topic MMR Vaccines Aged Out No longer eligi ble based on patient's age to complete this topic Meningococcal ACWY Vaccine Aged Out N o longer eligible based on patient's age to complete this topic Meningococcal B Vacine Aged Out No lo nger eligible based on patient's age to complete this topic Pneumococcal Vaccine: Pediat rics (0 to 5 Years) and At-Risk Patients (6 to 64 Years) Aged Out No longer eligi ble based on patient's age to complete this topic RSV Immunization Patients Un vance 20 months Aged Out No longer eligible b ased on patient's age to complete this topic Varicella Vaccines Aged Out No longer eligible based on patient's age to complete this topic Insurance ) [place] [id number] Care Teams Moss Bleacher Relationship Specialty Start Date End Date Maria Isabel Tolliver MD [address] [place] [address] PCP - General Internal Medicine 01/04/25
== END 2025-01-30 10:38 | disposition home or self-care (01) ==
PROVIDERS: PCP Physician Assistant; Visit Provider Physician Assistant
DX: Z23 Encounter for immunization (principal)

== ENCOUNTER → 2025-01-30 09:42 | Outpatient (BNVA) | payer BC, SELFPAY | PROVIDERS: PCP Physician Assistant; Visit Provider Physician Assistant | DX: Z00.00 Encounter for general adult medical examination without abnormal findings (principal); Z23 Encounter for immunization; E55.9 Vitamin D deficiency, unspecified; E66.813 Obesity, class 3; L68.0 Hirsutism; F50.89 Other specified eating disorder; R19.02 Left upper quadrant abdominal swelling, mass and lump; G47.33 Obstructive sleep apnea (adult) (pediatric); F33.0 Major depressive disorder, recurrent, mild; Z98.84 Bariatric surgery status | CPT/HCPCS: 90471; 90656; 96127 ==

== ENCOUNTER 2025-02-01 07:48 | Outpatient (REF) | payer BC, SELFPAY ==
--- OUTSIDE RECORDS SUMMARY | 2025-02-01 07:53 | XMS_ITS | Encounter Summary ---
Author Organization [employer] Address [address] [place] [address] [address] [place] [address] Care Team Providers Care Tree Loader Meat Name Role Phone Alexus Scott Primary Care Provider [phone] Encounter Details Date Type Department Care Team (Latest Contact Info) Description 10/18/2020 Abstract [facility] CONVERSIONS Dental, Provider, DDS Social History Tobacco [...] on filedocumented in this encounter Care Teams Tree Loader Meat Relationship Specialty Start Date End Date Alexus Scott FNP [address] [place] [address] PCP - General Family Medicine 05/27/22 11/01/23 documented as of this encounter
--- OUTSIDE RECORDS SUMMARY | 2025-02-01 07:53 | XMS_ITS | Clinical Summary ---
Author Organization [address] [place] [address] [place] [phone] Phone Care Team Providers Care Assistive Technology Specialist Name Role Phone Maria Isabel Tolliver MD Primary Care Provider [phone] Social History Tobacco Use Types Packs/Day Years [...] complete this topic Insurance ) [place] [id number] Care Teams Assistive Technology Specialist Relationship Specialty Start Date End Date Maria Isabel Tolliver MD [address] [place] [address] PCP - General Internal Medicine 01/04/25
--- OUTSIDE RECORDS SUMMARY | 2025-02-01 07:53 | XMS_ITS | Encounter Summary ---
Author Organization [employer] Address [address] [place] [address] [address] [place] [address] Care Team Providers Care Technical Architect Name Role Phone Alexus Scott Primary Care Provider [phone] Encounter Details Date Type Department Care Team (Latest Contact Info) Description 04/14/2019 Abstract [facility] CONVERSIONS Dental, Provider, DDS Social History Tobacco [...] on filedocumented in this encounter Care Teams Technical Architect Relationship Specialty Start Date End Date Alexus Scott FNP [address] [place] [address] PCP - General Family Medicine 05/27/22 11/01/23 documented as of this encounter
--- OUTSIDE RECORDS SUMMARY | 2025-02-01 07:53 | XMS_ITS | Encounter Summary ---
Author Organization [employer] Address [address] [place] [address] [address] [place] [address] Care Team Providers Care Fisheries Director Name Role Phone Alexus Scott Primary Care Provider [phone] Encounter Details Date Type Department Care Team [...] on filedocumented in this encounter Care Teams Fisheries Director Relationship Specialty Start Date End Date Alexus Scott FNP [address] [place] [address] PCP - General Family Medicine 05/27/22 11/01/23 documented as of this encounter
[2025-02-01 08:42] LABS: Hematocrit 30.9 % (37.0-47.0); Hemoglobin 9.7 g/dl (12.0-16.0); Mean Corpuscular HGB Conc 31.4 g/dl (31.0-35.0); Mean Corpuscular Hemoglobin 22.4 pg (27.0-33.0); Mean Corpuscular Volume 71.4 fL (80.0-98.0); Mean Platelet Volume 10.3 fL (9.4-12.3); Platelet Count 290 X10*3/uL (160-400); Red Blood Count 4.33 X10*6/uL (4.20-5.50); Red Cell Distribution Width 17.2 % (11.0-16.0); White Blood Count 6.4 X10*3/uL (4.8-10.8)
[2025-02-01 09:31] LABS: Alanine Aminotransferase 13 U/L (0-31); Albumin Level 4.1 g/dL (3.5-5.0); Alkaline Phosphatase 86 U/L (39-117); Anion Gap 11 (12-20); Aspartate Amino Transferase 20 U/L (5-31); Bilirubin Total 0.4 mg/dL (0.0-1.0); Blood Urea Nitrogen 8 mg/dL (9-16); Calcium 9.1 mg/dL (8.4-10.2); Carbon Dioxide 25 mmol/L (22-29); Chloride 108 mmol/L (96-108); Estimated Glomerular Filt Rate > 60; Glucose Fasting 97 mg/dL (60-99); Iron 27 mcg/dL (30-160); Percent Iron Saturation 7 % (15-50); Sodium 140 mmol/L (135-145); Total Iron Binding Capacity 372 mcg/dL (228-428); Total Protein 7.7 g/dL (6.5-8.0); Unsaturated Iron Binding 345 ug/dL
[2025-02-01 09:35] LABS: TSH reflex Free T4 1.79 uIU/mL (0.32-4.0); Vitamin D 25-OH Total 11.7 ng/mL (>30)
[2025-02-01 09:56] LABS: Folate 12.1 ng/mL (> or = 4.0); Vitamin B12 < 148 pg/mL (200-900)
[2025-02-05 18:13] LABS: Alpha-Tocopherol 12.3 mg/L (5.7-19.9); Beta-Gamma Tocopherol 1.3 mg/L (<=4.3)
[2025-02-06 01:54] LABS: Vitamin A 29 mcg/dL (38-98)
== END 2025-02-01 07:49 | disposition home or self-care (01) ==
LOC: HO.LAB 07:48
PROVIDERS: PCP Physician Assistant; Visit Provider Physician Assistant
DX: D50.9 Iron deficiency anemia, unspecified (principal); Z98.84 Bariatric surgery status; Z13.1 Encounter for screening for diabetes mellitus; E53.8 Deficiency of other specified B group vitamins; F50.89 Other specified eating disorder; E66.813 Obesity, class 3
CPT/HCPCS: 36415; 80053; 82306; 82607; 82746; 83540; 83735; 84443; 84446; 84590; 85027

== ENCOUNTER → 2025-03-29 06:58 | Outpatient (REF) | payer BC, SELFPAY ==
--- OUTSIDE RECORDS SUMMARY | 2025-03-29 07:00 | XMS_ITS | Clinical Summary ---
Author Organization [address] [place] [address] [place] [phone] Phone Care Team Providers Care Vp Foundation Name Role Phone Maria Isabel Tolliver MD Primary Care Provider [phone] Social History Tobacco Use Types Packs/Day Years [...] Influencers of Health Screening 12/27/2023 COVID-19 Vaccine (2023-2 5 season) 2024 Influenza Vaccine (Season Ended) 2025 02/15/20 18 HIB Vaccines Aged Out No longer eligi [...] age to complete this topic Meningococcal B Vaccine Aged Out No l onger eligible based on patient's age to complete [...] complete this topic Insurance ) [place] [phone] Care Teams Vp Foundation Relationship Specialty Start Date End Date Maria Isabel Tolliver MD [address] [place] [id number] PCP - General Internal Medicine 01/04/25
--- OUTSIDE RECORDS SUMMARY | 2025-03-29 07:00 | XMS_ITS | Encounter Summary ---
Author Organization [employer] Address [address] [place] [address] [address] [place] [address] Care Team Providers Care Heel Nailing Machine Operator Name Role Phone Alexus Scott Primary Care Provider [phone] Encounter Details Date Type Department Care Team (Latest Contact Info) Description 10/18/2020 Abstract [facility] CONVERSIONS Dental, Provider, DDS Social History Tobacco [...] on filedocumented in this encounter Care Teams Heel Nailing Machine Operator Relationship Specialty Start Date End Date Alexus Scott FNP [address] [place] [address] PCP - General Family Medicine 05/27/22 11/01/23 documented as of this encounter
--- OUTSIDE RECORDS SUMMARY | 2025-03-29 07:00 | XMS_ITS | Clinical Summary ---
Author Organization [employer] Address [address] [facility] [address] [place] [address] Care Team Providers Care Manager Ob Name Role Phone Unavailable Primary Care Provider [...] was performed using the APTIMA(R) HPV Assay ([employer] This assay detects E6/E7 viral messenger RNA (mRNA) from 14 high-risk HPV types (16,18,31,33,35,39,45,51, 52,56,58,59,66,68). For additional information please refer to: http://education.[employer]o [employer]ands.Giiv/faq/YMR042p7 (This link is being provided for informational/ educational purposes only.) The analytical performance characteristics of this assay have been determined by [email or web address] [place], [place]. The modifications have not been cleared or approved by the FDA. This assay has been validated pursuant to the CLIA regulations and is used for clinical purposes. Please note: ??Effective 08/10/2016, HPV testing will be performed using [employer]'s APTIMA test which targets mRNA. Detecting mRNA instead of DNA, as in older methods, offers significant improvements in specificity. ADDITIONAL TESTING Not indicated () [facility] Comment: Test Performed by [employer], [employer] [facility] [place], [address] [place] [address] Wyatt Perez M.D., Ph.D., Director of Laboratories , [place] [id number] HPV 16 RNA Test not performed [facility] HPV 18/45 RNA Test not performed [facility] 07/21/2019 9:47 AM EDT us Rola Santana DO HISTORICAL/NON ORDERABLE LAB S Final Result [facility] [address] from Last 3 Months or Most Recently Relevant to Health Maintenance
--- OUTSIDE RECORDS SUMMARY | 2025-03-29 07:00 | XMS_ITS | Encounter Summary ---
Author Organization [employer] Address [address] [place] [address] [address] [place] [address] Care Team Providers Care Facing Slitter Name Role Phone Alexus Scott Primary Care Provider Encounter Details Date Type Department Care Team (Latest Contact Info) Description 04/14/2019 Abstract [facility] CONVERSIONS Dental, Provider, DDS Social History Tobacco [...] on filedocumented in this encounter Care Teams Facing Slitter Relationship Specialty Start Date End Date Alexus Scott FNP [address] [place] [address] PCP - General Family Medicine 05/27/22 11/01/23 documented as of this encounter
--- OUTSIDE RECORDS SUMMARY | 2025-03-29 07:00 | XMS_ITS | Encounter Summary ---
Author Organization [employer] Address [address] [place] [address] [address] [place] [address] Care Team Providers Care Ditch Rider Name Role Phone Alexus Scott Primary Care Provider [phone] Encounter Details Date Type Department Care Team [...] on filedocumented in this encounter Care Teams Ditch Rider Relationship Specialty Start Date End Date Alexus Scott FNP [address] [place] [address] PCP - General Family Medicine 05/27/22 11/01/23 documented as of this encounter
[2025-03-29 07:41] LABS: Hematocrit 39.2 % (37.0-47.0); Hemoglobin 12.3 g/dl (12.0-16.0); Mean Corpuscular HGB Conc 31.4 g/dl (31.0-35.0); Mean Corpuscular Hemoglobin 24.9 pg (27.0-33.0); Mean Corpuscular Volume 79.4 fL (80.0-98.0); Mean Platelet Volume 10.3 fL (9.4-12.3); Platelet Count 248 X10*3/uL (160-400); Red Blood Count 4.94 X10*6/uL (4.20-5.50); Red Cell Distribution Width 21.7 % (11.0-16.0); White Blood Count 8.3 X10*3/uL (4.8-10.8)
[2025-03-29 08:04] LABS: Iron 96 mcg/dL (30-160); Percent Iron Saturation 29 % (15-50); Total Iron Binding Capacity 327 mcg/dL (228-428); Unsaturated Iron Binding 231 ug/dL
[2025-03-29 08:38] LABS: Folate 9.6 ng/mL (> or = 4.0); Vitamin B12 373 pg/mL (200-900)
[2025-04-01 22:19] LABS: Intrinsic Factor Antibodies Negative (Negative)
[2025-04-03 14:53] LABS: Parietal Cell Antibody 41.2 Unit (<=20.0)
== END ==
LOC: HO.SL 06:58
PROVIDERS: PCP Physician Assistant; Visit Provider Physician Assistant
DX: G47.33 Obstructive sleep apnea (adult) (pediatric) (principal); E53.8 Deficiency of other specified B group vitamins; D50.9 Iron deficiency anemia, unspecified
CPT/HCPCS: 36415; 82607; 82746; 83516; 83540; 85027; 86340; 95806

== ENCOUNTER 2025-03-29 07:27 | Outpatient (REF) | payer BC, SELFPAY ==
--- OUTSIDE RECORDS SUMMARY | 2025-03-29 07:30 | XMS_ITS | Clinical Summary ---
Author Organization [address] [place] [address] [place] [phone] Phone Care Team Providers Care Manager Strategy & Account Name Role Phone Maria Isabel Tolliver MD Primary Care Provider [phone] Social History Tobacco Use Types Packs/Day Years [...] complete this topic Insurance ) [place] [id number] Care Teams Manager Strategy & Account Relationship Specialty Start Date End Date Maria Isabel Tolliver MD [address] [place] [phone] PCP - General Internal Medicine 01/04/25
--- OUTSIDE RECORDS SUMMARY | 2025-03-29 07:30 | XMS_ITS | Encounter Summary ---
Author Organization [facility] Address [address] [place] [address] [address] [place] [address] Care Team Providers Care Research Management Associate Name Role Phone Alexus Scott Primary Care Provider [phone] Encounter Details Date Type Department Care Team (Latest Contact Info) Description 04/14/2019 Abstract [facility] CONVERSIONS Dental, Provider, DDS Social History Tobacco [...] on filedocumented in this encounter Care Teams Research Management Associate Relationship Specialty Start Date End Date Alexus Scott FNP [address] [place] [address] PCP - General Family Medicine 05/27/22 11/01/23 documented as of this encounter
--- OUTSIDE RECORDS SUMMARY | 2025-03-29 07:30 | XMS_ITS | Encounter Summary ---
Author Organization [employer] Address [address] [place] [address] [address] [place] [address] Care Team Providers Care Technical Analyst Name Role Phone Alexus Scott Primary Care Provider [phone] Encounter Details Date Type Department Care Team [...] filedocumented in this encounter Care Teams Technical Analyst Relationship Specialty Start Date End Date Alexus Scott FNP [address] [place] [address] PCP - General Family Medicine 05/27/22 11/01/23 documented as of this encounter
--- OUTSIDE RECORDS SUMMARY | 2025-03-29 07:30 | XMS_ITS | Encounter Summary ---
Author Organization [employer] Address [address] [place] [address] [address] [place] [address] Care Team Providers Care Carousel Attendant Name Role Phone Alexus Scott Primary Care Provider [phone] Encounter Details Date Type Department Care Team (Latest Contact Info) Description 10/18/[address] [facility] CONVERSIONS Dental, Provider, DDS Social History Tobacco [...] on filedocumented in this encounter Care Teams Carousel Attendant Relationship Specialty Start Date End Date Alexus Scott FNP [address] [place] [address] PCP - General Family Medicine 05/27/22 11/01/23 documented as of this encounter
== END 2025-03-29 07:28 | disposition home or self-care (01) ==
LOC: HO.MAMMO 07:27
PROVIDERS: PCP Physician Assistant; Visit Provider Internal Medicine
DX: Z12.31 Encounter for screening mammogram for malignant neoplasm of breast (principal)
CPT/HCPCS: 77063; 77067

== ENCOUNTER → 2025-03-29 07:45 | Outpatient (BNV) | payer BC, SELFPAY | PROVIDERS: PCP Physician Assistant; Visit Provider Internal Medicine | DX: Z12.31 Encounter for screening mammogram for malignant neoplasm of breast (principal) | CPT/HCPCS: 77063; 77067 ==

== ENCOUNTER → 2025-03-29 08:15 | Outpatient (BNV) | payer BC, SELFPAY | PROVIDERS: PCP Physician Assistant; Visit Provider Internal Medicine | DX: R06.83 Snoring (principal); G47.10 Hypersomnia, unspecified | CPT/HCPCS: 95806 ==

== ENCOUNTER 2025-04-16 07:21 | Outpatient (REF) | payer BC, SELFPAY ==
--- NOTE | ~2025-04-16 | CT_ITS ---
CLINICAL HISTORY: R19.02 - Left upper quadrant abdominal swelling, mass and lump --- Additional Notes or Special Instructions: Patient has chronic history of left upper quadrant abdominal pain and CT abdomen with contrast Comparison: None Findings: Tiny right lower lobe nodule, axial 1 measuring 3 mm. The liver, spleen, adrenal glands and pancreas are unremarkable. The gallbladder is surgically absent. The kidneys are normal. Visualized bowel is unremarkable. Gastric sleeve suggested. No soft tissue mass identified. With respect to the left upper quadrant swelling, there is questionable skin thickening under the left breast, axial 18. No abscess or suspicious soft tissue lesion. Impression: No definite acute process. Possible mild skin thickening inferior to the left breast. Tiny right lower lobe pulmonary nodule. If the patient is not at increased risk for malignancy, no follow-up is required. If the patient is considered high risk, a [address] could be considered. This document has been electronically signed by: Fam Somers MD on 04/16/2025 12:53:06
--- OUTSIDE RECORDS SUMMARY | 2025-04-16 07:24 | XMS_ITS | Encounter Summary ---
Author Organization [employer] Address [address] [place] [address] [address] [place] [address] Care Team Providers Care Industry Segment Specialist Name Role Phone Alexus Scott Primary Care Provider [phone] Encounter Details Date Type Department Care Team [...] on filedocumented in this encounter Care Teams Industry Segment Specialist Relationship Specialty Start Date End Date Alexus Scott FNP [address] [place] [address] PCP - General Family Medicine 05/27/22 11/01/23 documented as of this encounter
--- OUTSIDE RECORDS SUMMARY | 2025-04-16 07:24 | XMS_ITS | Clinical Summary ---
Author Organization [facility] Address [address] [place] [address] Care Team Providers Care President And Cmo Name Role Phone Community, Pcp Primary Care Provider Unavailabl e Allergies Active Allergy Reactions Severity Noted Date Comments Aspirin 03/01/2018 Medications No known medications Active Problems Problem Noted Date Calculus of gallbladder without cholecys titis without obstruction 03/01/2018 Social History Tobacco Use Types Packs/Day Years Used Date Smoking Tobacco: Never Smokeless Tobacco: Never Sex Assigned at Date Recorded Not on file Last Filed Vital Signs Vital Sign Reading Time Taken Comments Blood Pressure - - Pulse - - Temperature 36.6 ??C (97.8 ??F) 03/01/2018 11:14 AM E DT Respiratory Rate - - Oxygen Saturation - - Inhaled Oxygen Concentration - - Weight - - Height - - Body Mass Index - - Plan of Treatment Health Maintenance Due Date Last Done Comments Covid-19 Vaccine (#1) 05/22/1977 DTAP/TDAP/TD (1 - Tdap) 1995 CHOLESTEROL SCREENING 1996 CERVICAL CANCER SCREENING 1997 BASELINE HEALTH EXAM 40-64 2016 MAMMOGRAM 2016 BMI CHECK/ADVISE 11/29/2024 INFLUENZA (Season Ended) 2025 PNEUMOCOCCAL VACCINE FOR HIGH RISK PATIENTS (#1) 11/21 Care Teams President And Cmo Relationship Specialty Start Date End Date Community, Pcp PCP - General Internal Medicine 03/01/18
--- OUTSIDE RECORDS SUMMARY | 2025-04-16 07:24 | XMS_ITS | Encounter Summary ---
Author Organization [facility] Address [address] [place] [address] Care Team Providers Care Teacher Early Childhood Development Name Role Phone Community, Pcp Primary Care Provider Unavailabl e Encounter Details Date Type Department Care Team Description 03/04/2018 Release of Information Medical Records [address] [place] [id number] Abstract, Provider Social History Tobacco Use Types Packs/Day Years Used Date Smoking Tobacco: Never Smokeless Tobacco: Never Sex Assigned at Date Recorded Not on file documented as of this encounter Plan of Treatment Not on file documented as of this encounter Visit Diagnoses Not on filedocumented in this encounter Care Teams Teacher Early Childhood Development Relationship Specialty Start Date End Date Community, Pcp PCP - General Internal Medicine 03/01/18 documented as of this encounter
--- OUTSIDE RECORDS SUMMARY | 2025-04-16 07:24 | XMS_ITS | Clinical Summary ---
Author Organization [address] [place] [address] Address [address] [place] [address] Phone Care Team Providers Care Belt Sewer Name Role Phone Dank Nguyen Primary Care Provider Allergies Active Allergy Reactions Criticality Noted Date Comments Aspirin Anaphylaxis,Swelling High 03/01/2018 Medications ergocalciferol (VITAMIN D-2) 1,250 mcg (50,000 unit) capsule Take 1 capsule (50,000 Units total) by mouth 1 (one) time per week. 12 each 04/06/2025 Active Encounters Date Type Department Care Team Description 04/05/2025 8:40 AM EDT Lab Draw Station - [address] [place] [address] [address] [place] [address] Low vitamin D level (Primary Dx); Morbid obesity with BMI of 45.0-49.9, adult (CMS/HCC V24, CMS/[facility] V28) 03/30/2025 8:30 AM EDT Office Visit Bariatric Surgery - [address] [place] [address] Carlee Barfield MD Morbid obesity with BMI of 45.0-49.9, adult (CMS/HCC V24, CMS/[facility] V28) (Primary Dx); History of sleeve gastrectomy from Last 3 Months Social History Tobacco Use Types Packs/Day Years Used Date Smoking Tobacco: Never Assessed Comments Unknown Sex and Gender Information Value Date Recorded Sex Assigned at Female 04/02/2025 3:03 PM EDT Legal Sex Female 4:18 AM EST Gender Identity Female 04/02/2025 3:03 PM EDT Sexual Orientation Straight 04/02/2025 3: 15 PM EDT Last Filed Vital Signs Vital Sign Reading Time Taken Comments Blood Pressure 118/84 03/30/2025 8:33 AM EDT Pulse 77 03/30/2025 8:33 AM EDT Temperature 36.5 ??C (97.7 ??F) 03/30/2025 8:33 AM ED T Respiratory Rate - - Oxygen Saturation - - Inhaled Oxygen Concentration - - Weight 112 kg (247 lb) 03/30/2025 8:33 AM EDT Height 157.5 cm (5' 2 ) 03/30/2025 8:33 AM EDT Body Mass Index 45.18 03/30/2025 8:33 AM EDT Plan of Treatment Upcoming Encounters Date Type Department Care Team (Late st Contact Info) Description 05/09/2025 9:00 AM EDT Nutrition Bariatric Surgery - [place] [address] [address] Malia Stoll, RD 175 [facility] [address] [place] [address] 06/04/2025 8:00 AM EDT Appointment [facility] Xray [address] [place] [id number] Health Maintenance Due Date Last Done Comments Breast Cancer Screening 1976 Hepatitis B Vaccines (1 of 3 - 19+ 3-dose series) 1995 Cervical Cancer Screening: Pap Smear 1997 Colorectal Cancer Screening: Colonoscopy 12/27/2023 Depression Screening 12/27/2023 HIV Screening 12/27/2023 Hepatitis C Screening 12/27/2023 Social Influencers of Health Screening 12/27/2023 COVID-19 Vaccine ( season) 2024 12/06/2021, 01/21/2021, 12/19/2020 Cholesterol Screening (Lipid Panel) 04/05/2030 04/05/2025 DTaP,Tdap,and Td Vaccines (3 - Td or Tdap) 12/03/2030 12/03/2020, 03/27/2016 Influenza Vaccine Completed 01/30/2025, , 09/02/2021, Additional history exists HIB Vaccines Aged Out No longer eligi [...] to 64 Years) Aged Out No longer eligible based on patient's age to complete this topic RSV Immunization Patients Under 20 months Aged Out No longer eligible based on patient's age to complete this topic Varicella Vaccines Aged Out No longer eligible based on patient's age to complete this topic Procedures Procedure Name Priority Date/Time Associated Diagnosis Comments CORTISOL Routine 04/05/2025 9:04 AM EDT Morbid obesity with BMI of 45.0-49.9, adult ([facility] V24, CMS/[facility] V28) FOLATE Routine 04/05/2025 9:04 AM EDT Morbid obesity with BMI of 45.0-49.9, adult ([facility] V24, [facility] V28) HELICOBACTER PYLORI BREATH TEST Routine 04/05/2025 9:04 AM EDT Morbid obesity with BMI of 45.0-49.9, adult ([facility] V24, [facility] V28) HEMOGLOBIN A1C Routine 04/05/2025 9:04 AM EDT Morbid obesity with BMI of 45.0-49.9, adult ([facility] V24, [facility] V28) INSULIN, TOTAL Routine 04/05/2025 9:04 AM EDT Morbid obesity with BMI of 45.0-49.9, adult (CMS/HCC V24, CMS/HCC V28) LIPID PANEL WITH REFLEX TO DIRECT LDL Routine 04/05/2025 9:04 AM EDT Morbid obesity with BMI of 45.0-49.9, adult (CMS/HCC V24, CMS/HCC V28) NICOTINE AND COTININE Routine 04/05/2025 9:04 AM EDT Morbid obesity with BMI of 45.0-49.9, adult (CMS/HCC V24, CMS/HCC V28) PARATHYROID HORMONE INTACT Routine 04/05/2025 9:04 AM EDT Morbid obesity with BMI of 45.0-49.9, adult (CMS/HCC V24, CMS/HCC V28) THYROID STIMULATING HORMONE WITH REFLEX TO FREE T4 AND FREE T3 Routine 04/05/2025 9:04 AM EDT Morbid obesity with BMI of 45.0-49.9, adult (CMS/HCC V24, CMS/HCC V28) URIC ACID Routine 04/05/2025 9:04 AM EDT Morbid obesity with BMI of 45.0-49.9, adult (CMS/HCC V24, CMS/HCC V28) VITAMIN B1 Routine 04/05/2025 9:04 AM EDT Morbid obesity with BMI of 45.0-49.9, adult (CMS/HCC V24, CMS/HCC V28) VITAMIN D 25 HYDROXY Routine 04/05/2025 9:04 AM EDT Morbid obesity with BMI of 45.0-49.9, adult (CMS/HCC V24, CMS/HCC V28) COMPREHENSIVE METABOLIC PANEL Routine 04/05/2025 9:04 AM EDT Morbid obesity with BMI of 45.0-49.9, adult (CMS/HCC V24, CMS/HCC V28) EXTERNAL CLINICAL LAB 03/29/2025 MA SLEEP STUDY ATTENDED 03/29/2025 from Last 3 Months Results * Thyroid stimulating hormone with reflex to free t4 and free t3 (04/05/2025 9:04 AM EDT) TSH 2.58 0.40 - 4.00 mcIU/mL LAB CHEMISTRY METHOD 04/05/2025 5:44 PM EDT [facility] Blood Venous blood specimen / Unknown Venipuncture / Unknown 04/05/2025 9:04 AM EDT 04/05/2025 9:04 AM EDT us Carlee Barfield MD LAB BLOOD ORDERABLES Fi nal Result [facility] [address] [place] [address], [place] [phone] * Lipid panel with reflex to direct LDL (04/05/2025 9:04 AM EDT) Pathologist [facility] [place] Cholesterol 178 0 - 200 mg/dL LAB CHEMISTRY METHOD 04/05/2025 3:19 PM EDT [facility] Triglycerides 93 0 - 150 mg/dL LAB CHEMISTRY METHOD 04/05/2025 3:19 PM [facility] HDL 66 >=40 mg/dL LAB CHEMISTRY METHOD 04/05/2025 3:19 PM T [facility] LDL Calculated 93 0 - 100 mg/dL LAB CHEMISTRY METHOD 04/05/2025 3:19 PM EDT [facility] VLDL Cholesterol Jan 18.6 mg/dL LAB CHEMISTRY METHOD 04/05/2025 3:19 PM EDT [facility] Non HDL Chol. (LDL+VLDL) 112 <145 mg/dL LAB CHEMISTRY METHOD 04/05/2025 3:19 PM [facility] Chol/HDL Ratio 2.7 0.0 - 4.4 LAB CHEMISTRY METHOD 04/05/2025 3:19 PM EDT [facility] Blood Venous blood specimen / Unknown Venipuncture / Unknown 04/05/2025 9:04 AM EDT 04/05/2025 9:04 AM EDT us Carlee Barfield MD LAB BLOOD ORDERABLES Fi nal Result [facility] [address] [place] [address], * Nicotine and cotinine (04/05/2025 9:04 AM EDT) Nicotine <2.0 <2.0 ng/mL 04/10/2025 5:42 AM EDT [facility] Cotinine <2.0 <2.0 ng/mL 04/10/2025 5:42 AM EDT [facility] Comment: ?Additional Reference Ranges: ? Active Tobacco ? Passive ? Abstinence ?User ?Exposure ?? 2 Weeks and more ? Nicotine ?30 - 50 ??ng/mL ?<2 ng/mL ?<2 ng/mL Cotinine ?? 200 - 800 ng/mL ?<8 ng/mL ?<2 ng/mL Reference Ranges from: ??Clin. Chem.; ??[phone] (2002) Direct any interpretive questions to the toxicology laboratory. This is for medical use only, it is not intended for forensic use. If applicable, any drug confirmation testing reported here was developed and the performance characteristics determined by [facility]. This confirmation testing has not been cleared or approved by the FDA. The laboratory is regulated under CLIA as qualified to perform high-complexity testing. This test is used for patient testing purposes. It should not be regarded as investigational or for research. Test performed at [facility], [address] , [place], [place] ??[address] ? [phone] Cassie Ruiz MD, PhD - Orthodontist Blood Venous blood specimen / Unknown Venipuncture / Unknown 04/05/2025 9:04 AM EDT 04/05/2025 9:04 AM EDT us Carlee Barfiedl MD LAB BLOOD ORDERABLES Fi nal Result Performing Organization Address City/[facility]/ZIP Co de Phone Number [facility] [address] [place] [address] * Insulin, total (04/05/2025 9:04 AM EDT) Pathologist [facility] [place] Insulin 17.2 3.0 - 25.0 mcIU/mL LAB CHEMISTRY METHOD 04/05/2025 5:44 PM EDT [facility] Blood Venous blood specimen / Unknown Venipuncture / Unknown 04/05/2025 9:04 AM EDT 04/05/2025 9:04 AM EDT Narrative [facility] - 04/05/2025 5:44 PM EDT Insulin reference range based on fasting status. ??Insulin values vary in non- fasting individuals. us Carlee Barfield MD LAB BLOOD ORDERABLES Fi nal Result [facility] [address] [place] [address], [place] [phone] * Helicobacter pylori breath test (04/05/2025 9:04 AM EDT) H Pylori Breath Test Negative Negative LAB CHEMISTRY METHOD 04/05/2025 2:45 PM EDT [facility] Breath Oral cavity structure / Unknown Non-blood Collection / Unknown 04/05/2025 9:04 AM EDT 04/05/2025 9:04 AM EDT us Carlee Barfield MD LAB BODY FLUIDS AND STO OLS ORDERABLES Final Result Performing Organization Address City/[facility]/ZIP Co de Phone Number [facility] [address] [place] [address], [place] [phone] * (ABNORMAL) Vitamin D 25 hydroxy (04/05/2025 9:04 AM EDT) Vit D, 25-Hydroxy 22.9(L) 30.0 - 80.0 ng/mL LAB CHEMISTRY METHOD 04/05/2025 4:22 PM EDT [facility] Blood Venous blood specimen / Unknown Venipuncture / Unknown 04/05/2025 9:04 AM EDT 04/05/2025 9:04 AM EDT us Carlee Barifeld MD LAB BLOOD ORDERABLES Fi nal Result Performing Organization Address [facility]/ZIP Co de Phone Number [facility] [address] [place] [address], [place] [phone] * Uric acid (04/05/2025 9:04 AM EDT) Uric Acid 5.7 3.1 - 7.8 mg/dL LAB CHEMISTRY METHOD 04/05/2025 3:19 PM EDT [facility] Blood Venous blood specimen / Unknown Venipuncture / Unknown 04/05/2025 9:04 AM EDT 04/05/2025 9:04 AM EDT us Carlee Barfield MD LAB BLOOD ORDERABLES Fi nal Result [facility] [address] [place] [address], * Vitamin B1 (04/05/2025 9:04 AM EDT) Pathologist [facility] [place] Vitamin B1 Whole Blood 69 38 - 122 ug/L 04/10/2025 12:59 PM EDT [facility] Comment: This test was developed and the performance characteristics determined by [facility]. It has not been cleared or approved by the FDA. The laboratory is regulated under CLIA as qualified to perform high-complexity testing. This test is used for patient testing purposes. It should not be regarded as investigational or for research. Test performed at [facility], [address] [place], [place] ??[address] ? [phone] Cassie Ruiz MD, PhD - Orthodontist Blood Venous blood specimen / Unknown Venipuncture / Unknown 04/05/2025 9:04 AM EDT 04/05/2025 9:04 AM EDT Carlee Barfield MD LAB BLOOD ORDERABLES Fi nal Result Performing Organization Address [facility] Co de Phone Number [facility] [address] [facility] [place] [address] * (ABNORMAL) Parathyroid hormone intact (04/05/2025 9:04 AM EDT) Pathologist [facility] [place] PTH 121.4(H) 18.5 - 88.0 pcg/mL LAB CHEMISTRY METHOD 04/05/2025 4:22 PM EDT [facility] Blood Venous blood specimen / Unknown Venipuncture / Unknown 04/05/2025 9:04 AM EDT 04/05/2025 9:04 AM EDT us Carlee Barfield MD LAB BLOOD ORDERABLES Fi nal Result Performing Organization Address [facility]/ZIP Co de Phone Number [facility] [address] [place] [address], * Hemoglobin A1c (04/05/2025 9:04 AM EDT) Hemoglobin A1C 5.4 <6.5 % LAB CHEMISTRY METHOD 04/05/2025 1:51 PM EDT [facility] Mean Bld Glu Estim. 108 mg/dL LAB CHEMISTRY METHOD 04/05/2025 1:51 PM EDT [facility] Blood Venous blood specimen / Unknown Venipuncture / Unknown 04/05/2025 9:04 AM EDT 04/05/2025 9:04 AM EDT Carlee Barfield MD LAB BLOOD ORDERABLES Fi nal Result Performing Organization Address [facility]/ZIP Co de Phone Number [facility] [address] [place] [address], * Folate (04/05/2025 9:04 AM EDT) Folate 7.8 2.8 - 17.0 ng/ml LAB CHEMISTRY METHOD 04/05/2025 3:19 PM EDT [facility] Blood Venous blood specimen / Unknown Venipuncture / Unknown 04/05/2025 9:04 AM EDT 04/05/2025 9:04 AM EDT Carlee Barfield MD LAB BLOOD ORDERABLES Fi nal Result [facility] [address] [place] [address], * Cortisol (04/05/2025 9:04 AM EDT) Cortisol 18.8 mcg/dL LAB CHEMISTRY METHOD 04/05/2025 5:44 PM EDT [facility] Blood Venous blood specimen / Unknown Venipuncture / Unknown 04/05/2025 9:04 AM EDT 04/05/2025 9:04 AM EDT Narrative [facility] - 04/05/2025 5:44 PM EDT CORTISOL REFERENCE RANGE ?? 8 AM SPEC: ??5.0-23.0 mcg/dL ?? 4 PM SPEC: ??3.0-16.0 mcg/dL ?? 8 PM SPEC: ??<5.0 mcg/dL us Carlee Barfield MD LAB BLOOD ORDERABLES Fi nal Result [facility] [address] [place] [address], [place] [phone] * Comprehensive metabolic panel (04/05/2025 9:04 AM EDT) Sodium 136 133 - 145 mmol/L LAB CHEMISTRY METHOD 04/05/2025 3:19 PM [facility] Potassium 4.4 3.5 - 5.5 mmol/L LAB CHEMISTRY METHOD 04/05/2025 3:19 PM [facility] Chloride 106 96 - 110 mmol/L LAB CHEMISTRY METHOD 04/05/2025 3:19 PM [facility] CO2 24 21 - 32 mmol/L LAB CHEMISTRY METHOD 04/05/2025 3:19 PM [facility] Anion Gap 6 3 - 11 LAB CHEMISTRY METHOD 04/05/2025 3:19 PM [facility] Glucose 97 70 - 100 mg/dL LAB CHEMISTRY METHOD 04/05/2025 3:19 PM [facility] BUN 10 5 - 25 mg/dL LAB CHEMISTRY METHOD 04/05/2025 3:19 PM [facility] Creatinine 0.64 0.50 - 1.10 mg/dL LAB CHEMISTRY METHOD 04/05/2025 3:19 PM [facility] eGFR 109 >=60 mL/min/1. 73m2 LAB CHEMISTRY METHOD 04/05/2025 3:19 PM T [facility] Comment:Calculation based on the Chronic Kidney Disease Epidemiology Collaboration (CKD-EPI) equation refit without adjustment for race. BUN/Creatinine Ratio 15.6 LAB CHEMISTRY METHOD 04/05/2025 3:19 PM [facility] Calcium 9.5 8.5 - 10.5 mg/dL LAB CHEMISTRY METHOD 04/05/2025 3:19 PM [facility] AST (SGOT) 17 10 - 42 unit/L LAB CHEMISTRY METHOD 04/05/2025 3:19 PM [facility] ALT (SGPT) 23 10 - 60 unit/L LAB CHEMISTRY METHOD 04/05/2025 3:19 PM [facility] Alkaline Phosphatase 93 42 - 121 unit/L LAB CHEMISTRY METHOD 04/05/2025 3:19 PM [facility] Total Protein 7.6 6.0 - 8.0 g/dL LAB CHEMISTRY METHOD 04/05/2025 3:19 PM [facility] Albumin 4.0 3.2 - 5.0 g/dL LAB CHEMISTRY METHOD 04/05/2025 3:19 PM [facility] Total Bilirubin 0.4 0.0 - 1.4 mg/dL LAB CHEMISTRY METHOD 04/05/2025 3:19 PM [facility] Blood Venous blood specimen / Unknown Venipuncture / Unknown 04/05/2025 9:04 AM EDT 04/05/2025 9:04 AM EDT us Carlee Barfield MD LAB BLOOD ORDERABLES Fi nal Result [facility] [address] [place] [address], * External clinical lab (03/29/2025) Provider [facility] BLOOD ORDERABLES Fin al Result * General sleep study (03/29/2025) Provider [facility] ORDERABLES Final Result from Last 3 Months Insurance Care Teams Belt Sewer Relationship Specialty Start Date End Date Dank Nguyen PA [address] [place] [address] PCP - General Physician Director Of Strategic Communications 03/30/25
--- OUTSIDE RECORDS SUMMARY | 2025-04-16 07:24 | XMS_ITS | Clinical Summary ---
Author Organization [employer] Address [address] [facility] [address] [place] [address] Care Team Providers Care Director Of Strategic Initiatives Name Role Phone Unavailable Primary Care Provider [...] HPV mRNA E6/E7 Not Detected NOT DETECTED [facility] Comment: This test was performed using the APTIMA(R) HPV Assay ([employer] This assay detects E6/E7 viral messenger RNA (mRNA) from 14 high-risk HPV types (16,18,31,33,35,39,45,51, 52,56,58,59,66,68). For additional information please refer to: http://education.[employer]/faq/ZAU662j1 (This link is being provided for informational/ educational purposes only.) The analytical performance characteristics of this assay have been determined by [employer] [place], [place]. The modifications have not been cleared or approved by the FDA. This assay has been validated pursuant to the CLIA regulations and is used for clinical purposes. Please note: ??Effective 08/10/2016, HPV testing will be performed using [employer]'s APTIMA test which targets mRNA. Detecting mRNA instead of DNA, as in older methods, offers significant improvements in specificity. ADDITIONAL TESTING Not indicated () [facility] Comment: Test Performed by [employer] [facility], [facility], [address] [place] [address] Wyatt Perez M.D., Ph.D., Director of Laboratories , [place] [id number] HPV 16 RNA Test not performed [facility] HPV 18/45 RNA Test not performed [facility] 07/21/2019 9:47 AM EDT Rola Santana DO HISTORICAL/NON ORDERABLE LAB S Final Result [facility] [address] from Last 3 Months or Most Recently Relevant to Health Maintenance
--- OUTSIDE RECORDS SUMMARY | 2025-04-16 07:24 | XMS_ITS | Encounter Summary ---
Author Organization [employer] Address [address] [place] [address] 7 [place] [address] Care Team Providers Care Line Technician Name Role Phone Alexus Scott Primary Care Provider [phone] Encounter Details Date Type Department Care Team (Latest Contact Info) Description 10/18/2020 Abstract [facility] CONVERSIONS Dental, Provider, DDS Social [...] on filedocumented in this encounter Care Teams Line Technician Relationship Specialty Start Date End Date Alexus Scott FNP [address] [place] [address] PCP - General Family Medicine 05/27/22 11/01/23 documented as of this encounter
--- OUTSIDE RECORDS SUMMARY | 2025-04-16 07:24 | XMS_ITS | Encounter Summary ---
Author Organization [employer] Address [address] [place] [address] 7 [place] [address] Care Team Providers Care Apprentice Photographer Name Role Phone Alexus Scott Primary Care Provider [phone] Encounter Details Date Type Department Care Team (Latest Contact Info) Description 04/14/2019 Abstract C CONVERSIONS Dental, Provider, DDS Social History Tobacco [...] on filedocumented in this encounter Care Teams Apprentice Photographer Relationship Specialty Start Date End Date Alexus Scott FNP [address] [place] [address] PCP - General Family Medicine 05/27/22 11/01/23 documented as of this encounter
[2025-04-16] MEDS: iohexoL 350 MG/ML 75 ML INFUS..BTL 85 ML IV (09:45)
[2025-04-16] MEDS: Barium Sulfate Oral (Berry) 450 ML ORAL.SUSP PO (09:46)
== END 2025-04-16 07:22 | disposition home or self-care (01) ==
LOC: HO.CT 07:21
PROVIDERS: PCP Physician Assistant; Visit Provider Physician Assistant
DX: R19.02 Left upper quadrant abdominal swelling, mass and lump (principal)
CPT/HCPCS: 74160; Q9967

== ENCOUNTER → 2025-04-16 07:24 | Outpatient (BNV) | payer BC, SELFPAY | PROVIDERS: PCP Physician Assistant; Visit Provider Radiology Vascular & Interventional Radiology | DX: R19.02 Left upper quadrant abdominal swelling, mass and lump (principal) | CPT/HCPCS: 74160 ==

== ENCOUNTER 2025-05-25 08:12 | Outpatient (AMB) | payer BC, SELFPAY ==
--- OUTSIDE RECORDS SUMMARY | 2025-05-25 08:18 | XMS_ITS | Clinical Summary ---
Author Organization [employer] Address [address] [facility] [address] [place] [address] Care Team Providers Care Caul Puller Name Role Phone Unavailable Primary Care Provider [...] 1976 FIT 1976 FOBT 1976 Sigmoidoscopy 1976 Disability Screening 1976 Alcohol/Substance Use Screening 1988 Tobacco Screening 1988 Family Planning (PISQ) 1991 Hepatitis B Vaccines (1 of 3 - 19+ 3-dose series) 1995 Pap Smear 1997 Mammogram 2016 Cervical Cancer Screening 07/21/2024 HPV/Cotest 07/21/2024 07/21/2019 COVID-19 Vaccine (3 - 2023-2 5 season) 2024 01/21/2021, 12/19/2020 Influenza Vaccine (Season Ended) 2025 08/27/2020, 08/14/2019, 03/27/2016 Zoster Vaccines (1 of 2) [...] Years) and At-Risk Patients (6 to 49) Years Aged Out No longer eligible b ased on patient's age to complete this topic RSV under 20 months Aged Out No longe r eligible based on patient's age to complete this topic Rotavirus Vaccines Aged Out No longer eligible based on patient's age to complete this topic Procedures Procedure Name Priority Date/Time Associated Diagnosis Comments ZZZ HISTORICAL HPV E6/E7 RFLX JOSE L 16 18/45 Routine 07/21/2019 9:47 AM EDT from Last 3 Months or Most Recently Relevant to Health Maintenance Results * HPV E6/E7 RFLX JOSE L 16 18/45 (07/21/2019 9:47 AM EDT) HPV mRNA E6/E7 Not Detected NOT DETECTED [facility] Comment: This test was performed using the APTIMA(R) HPV Assay ([employer] This assay detects E6/E7 viral messenger RNA (mRNA) from 14 high-risk HPV types (16,18,31,33,35,39,45,51, 52,56,58,59,66,68). For additional information please refer to: http://education.[employer]/faq/BKN789t9 (This link is being provided for informational/ educational purposes only.) The analytical performance characteristics of this assay have been determined by [employer] [place], [place]. The modifications have not been cleared or approved by the FDA. This assay has been validated pursuant to the CLIA regulations and is used for clinical purposes. Please note: Effective 08/10/2016, HPV testing will be performed using [email or web address]'s APTIMA test which targets mRNA. Detecting mRNA instead of DNA, as in older methods, offers significant improvements in specificity. ADDITIONAL TESTING Not indicated () [facility] Comment: Test Performed by [employer], [employer] [facility], [address] [place] [address] Wyatt Perez M.D., Ph.D., Director of Laboratories , CLIA [id number] HPV 16 RNA Test not performed [facility] HPV 18/45 RNA Test not performed [facility] 07/21/2019 9:47 AM EDT us Rola Santana DO HISTORICAL/NON ORDERABLE LAB S Final Result [facility] [address] from Last 3 Months or Most Recently Relevant to Health Maintenance
--- NOTE | 2025-05-25 08:33 | MHC.OFFVIS ---
Vital Signs 05/25/25 08:34 Height 5 ft 2 in Weight 243 lb BMI 44.4 BP 108/70 Blood Pressure Location Rt brachial Position Sitting Pulse 66 Pulse Source Pulse Oximeter Pulse Oximetry (%) 98 Oxygen Delivery Method Room Air Intake Visit Reasons: [place] screening Intake Note: New patient for GERD eval and initial colo screening. CC; Pt denies any GI sx or concerns at this time. Pt had previously been taking Omeprazole but no longer had felt that they needed the Rx. Phlebotomy Tech Required: No Accompanied by: Self / Same As Patient Allergies aspirin (Aspirin) Allergy (Severe, Verified 05/25/25 08:33) swelling HPI HPI [place] screening: Details: 49 year old? female with past medical history of microcytic anemia, B12 deficiency, MDD, ALEX, laparoscopic sleeve gastrectomy, hyperparathyroidism is here today for pre colonoscopy screening.? Patient was sent to us by her PCP.? This is her first colonoscopy screening.? Patient denies any gastrointestinal symptoms in the past or at present.? Denies any personal or family history of gastrointestinal disease, colon polyps, or CRC.? Denies history of difficulty with sedation or anesthesia in the past.? Patient denies sleep apnea, however is in her history.? Denies any history of cardiac, renal, pulmonary, or hepatic disease.?? No history of infectious? diseases like hepatitis A, B, C, HIV or tuberculosis.? Patient is not on any anticoagulation [facility], [facility] Medical History (Updated 05/25/25 @ 09:08 by Jeni Conrad, [facility]) GERD (gastroesophageal reflux disease) Intestinal malabsorption following gastrectomy BMI greater than 40 Encounter for pre-operative examination Elevated androgen levels Annual physical exam Hypovitaminosis D Hyperparathyroidism Body mass index (BMI) of 45.0-49.9 in adult Right elbow pain Morbid obesity with BMI of 50.0-59.9, adult Super obesity Surgical History Hx of tubal ligation History of laparoscopic cholecystectomy History of bilateral breast reduction surgery History of section complicating Family History Father Unknown family medical history Mother Diabetes HTN (hypertension) Brother No problems noted. Daughter Morbid obesity due to excess calories Daughter No problems noted. Son No problems noted. Sister No problems noted. 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 Denies any issues with anesthesia in the past.? Denies any history of sleep apnea however it is mentioned in her history.? No history infectious diseases in the past or present.? Not on any anticoagulation therapy.? No family or personal history of colon cancer or polyps.? Patient denies melena, hematochezia, unintentional weight loss or ribbon like stools.? Discussed at length the pre-procedure,? prep, diet & medications as well as what to expect prior, during and after the procedure.?? Stressed the importance of good bowel prep.? Recommended the use of Vaseline or Calmoseptine OTC & baby wipes with bowel movements to promote comfort.? ?Patient verbalizes understanding and agrees to plan of care.? She was given the opportunity to ask questions and all questions answered.? We will see her after the procedure.? Medications: New polyethylene glycol 3350 (Miralax) As directed by gastroenterology department at [facility] 238 grams PO ONCE 238 grams 0RF Z12.11 - Encounter for screening for malignant neoplasm of colon bisacodyl (Dulcolax (bisacodyl)) Start taking 2 tablet every night 7 days before the procedure and 1 day before procedure take 4 tablets at noon time followed by MiraLax prep 10 mg (2 x 5 mg) PO BEDTIME 16 tabs 0RF Z12.11 - Encounter for screening for malignant neoplasm of colon Coding Level of Care Code New Pt Level 3 (96100) Diagnoses Encounter for colorectal cancer screening Z12.11; Z12.12 Time Spent (min) 40 Comment 30 minutes spent with patient and additional 10 minutes spent reviewing her records
[2025-05-25 08:34] VITALS: BP 108/70; PULSE 66; O2SAT 98; BMI 44.4
== END 2025-05-25 09:30 | disposition home or self-care (01) ==
LOC: HO.HGI 08:13
PROVIDERS: PCP Physician Assistant; Visit Provider Nurse Practitioner Family
DX: Z01.818 Encounter for other preprocedural examination (principal); Z12.11 Encounter for screening for malignant neoplasm of colon; Z12.12 Encounter for screening for malignant neoplasm of rectum
CPT/HCPCS: S0285

== ENCOUNTER 2025-07-24 09:13 | Outpatient (AMB) | payer BC, SELFPAY ==
--- OUTSIDE RECORDS SUMMARY | 2025-07-19 08:00 | XMS_ITS | Encounter Summary ---
Author Organization [facility] Address [address] [place] [address] Care Team Providers Care Limnologist Name Role Phone Dank Nguyen Primary Care Provider Reason for Visit * Reason Comments Obesity Encounter Details Date Type Department Care Team ([facility] st Contact Info) Description 07/19/2025 8:00 AM EDT Nutrition Bariatric Surgery - [address] [phone] Malia Stoll, RD 175 [facility] [address] [place] [address] Class 3 severe obesity without serious comorbidity with body mass index (BMI) of 40.0 to 44.9 in adult, unspecified obesity type (CMS/HCC V24, CMS/HCC V28) (Primary Dx) Social History Tobacco Use Types Packs/Day Years Used Date Smoking Tobacco: Never Assessed Comments Unknown Sex and Gender Information Value Date Recorded Sex Assigned at Female 04/02/2025 3:03 PM EDT Legal Sex Female 4:18 AM EST Gender Identity Female 04/02/2025 3:03 PM EDT Sexual Orientation Straight 04/02/2025 3: 15 PM EDT documented as of this encounter Last Filed Vital Signs Vital Sign Reading Time Taken Comments Blood Pressure - - Pulse - - Temperature - - Respiratory Rate - - Oxygen Saturation - - Inhaled Oxygen Concentration - - Weight 110 kg (243 lb) 07/19/2025 8:06 AM EDT Height - - Body Mass Index 44.45 03/30/2025 8:33 AM EDT documented in this encounter Progress Notes * Malia PierreAbi, RD - 07/19/2025 8:00 AM EDT Images from the original note were not included. Patient-created Goals: - Can use [employer] for resource on how to properly lift weights -Switch out potato's and rice for vegetables -Fluid Goal 64 ounces -Could add spinach to juice 1. What surgery is it that you have to take Bariatric Multivitamin for at least 1 year? Lab Band Surgery Gastric Sleeve Gastric Bypass Duodenal Switch All of the above 2. What type of Vitamin can I use after surgery? (select all that apply) Chewable Bariatric Vitamin A. Bariatric Vitamin Patch B. [place]'s Chewable children's vitamin C. Oral bariatric vitamin D. Bariatric Gummy Vitamins E. I do not need to take any vitamins following surgery 3. When do you start the pre-op diet 1 month before surgery A. 14 days before surgery B. The night before surgery C. There is no pre-op diet 4. If you fail to meet your clear liquid intake, which is the most likely complication? A. Constipation B. Lactose Intolerance C. Nausea/Vomiting D. Dehydration 5. Clear liquids can include sugar A. True B. False 6. Four ounces of caffeine is allowed in stage 2 and beyond A. True B. False 7. It is important to get in the recommended amounts of grams of protein and clear liquids to avoidcomplications? A. True B. False 8. What is your daily protein goal? A. 10 grams daily B. 100 grams daily C. 60-80 grams daily D. There is no protein goal 9. What is stage 3 of the diet? A. Clear liquids B. Ground Food C. Regular diet D. Pureed fruits and vegetables 10. What is stage 4 of the diet? A. Protein shakes only B. Pureed fruits and vegetables C. Regular food-no restrictions D. Ground food including ground chicken, turkey, beef, and fish 11. Can you shower after surgery? A. No, never again B. You can shower immediately, just not a tub bathe C. After your two-week follow-up appointment D. None of the above 12. You eat full fat ice cream 1 month after your bariatric procedure and unfortunately develop nausea, dizziness, fast heartbeat, abdominal cramps, and diarrhea-what are you likely experiencing? A. Dumping Syndrome B. Constipation C. Lactose Intolerance D. Dehydration 13. Gas pain can occur after the procedure. A. True B. False 14. If you experience gas pain, what can you do to help resolve it? (Select all that apply) A. Take zofran as prescribed B. Take simethicone as prescribed C. Get up and walk around, change positions D. Drink fo from a straw 15. If you experience nausea, what can you do to help resolve it? (Select all that apply ) A. Tylenol B. Simethicone C. Actigall D. Zofran 16. IF you are taking GLP-1 injections, a clear liquid diet is required the day before surgery. A. True B. False 17. What items count as clear liquids? (Select all that apply) A. Low sodium chicken, vegetable or bone broth B. Chicken noodle soup C. Juice D. Sugar free jello E. Water F. Powerade zero, diet Snapple, decaf coffee, crystal light, Vitamin water zero Malia Stoll RDN Bariatric Dietitian [facility] [email or web address] W [phone] F [phone] * Malia Stoll RD - 07/19/2025 8:00 AM EDT NUTRITION FOLLOW-UP NOTE: Patient Name: Aurora Fowler Date of : 1975 Date of Service: 07/19/2025 SURGEON: Carlee Barfield MD DESIRED SURGERY: Gastric Sleeve CHIEF COMPLAINT: Obesity HISTORY: Aurora Fowler is a 49 y.o. female who presents for nutrition visit for Pre-op bariatric surgery 2nd Ht Readings from Last 1 Encounters: 03/30/25 1.575 m (62 ) Wt today: Wt Readings from Last 4 Encounters: 07/19/25 110 kg (243 lb) 05/09/25 111 kg (245 lb) 03/30/25 112 kg (247 lb) Body mass index is 44.45 kg/m??. Wt at initial: 247 Wt change since initial: -4 5% weight loss from initial 234 lb EBW = current - wt at BMI of 25: 243 - 140 = 103 5% weight loss from initial 234 lb Challenges: none Changes since last visit: no more sweets, small coffee now 2 creams 1 sugar, cut down on rice, now eating eggs EATING HABITS/DIET RECALL: Breakfast: (7:30-8 am) coffee (2 crm, 1 sugar) 1-2 boiled eggs 1 pice of toast Lunch: (12): protein shake or chicken salad (olive oil) Dinner: two days a week going to school after work, protein shake Dinner: rice, beans, meat, potatoes Beverages: water (55 ounces) , juicing (orange beets and pineapple) Dines out: 1 x month Exercise: 1 hour at gym 4 days week, cardio at 5:30 am Reasons pt cannot exercise: none Nutrition diagnosis: Class Class III obesity related to Food/Nutrition related knowledge deficit asevidenced by A BMI 44 Patient-created Goals: - Can use utube for resource on how to properly lift weights -Switch out potato's and rice for vegetables -Fluid Goal 64 ounces -Could add spinach to juice Literature Provided: Goal sheets and RD contact information answers to QR codes Interventions: Discussed the importance of drinking enough water Nutrition assessment: Pt is 49 y.o. Female with h/o has no past medical history on file. Obesity class III Stage of change/Barriers to understanding: Pt is motivated to make changes to diet and lifestyle and No barriers to understanding Concerns regarding considerations for bariatric surgery: Pt voiced none and RD has none Monitoring/Evaluation: Monitor weight, Monitor progress toward nutrition goals, and Monitor compliance with program overall Patient nutritionally ready for surgery: Yes RD to see patient for follow-up nutrition visit in 3 months Visit Time: Total time of the visit was spent face to face in medical nutritional therapy was [address] NUTRITION SERVICES documented in this encounter Plan of Treatment Upcoming Encounters Date Type Department Care Team (Late st Contact Info) Description 08/06/2025 8:30 AM EDT Office Visit Bariatric Surgery - [employer] [address] [facility] [address] [place] [phone] Carlee Barfield MD [address] [place] [address] 10/09/2025 8:30 AM EST Nutrition Bariatric Surgery - [employer] [address] [phone] [phone] documented as of this encounter Visit Diagnoses Diagnosis Class 3 severe obesity without serious comorbidity with body mass index (BMI) of 40.0 to 44.9 in adult, unspecified obesity type (CMS/HCC V24, CMS/HCC V28)- Primary documented in this encounter Care Teams Limnologist Relationship Specialty Start Date End Date Dank Nguyen PA [address] [place] [phone] PCP - General Physician Marine Extension Agent 05/04/25 documented as of this encounter
--- NOTE | 2025-07-24 09:16 | MHC.OFFVIS ---
Vital Signs 07/24/25 09:17 Height 5 ft 2 in Weight 242 lb BMI 44.3 BP 112/76 Intake Visit Reasons: New patient Annual Intake Note: Last pap +5yrs ago normal hx per pt Fundraising Sale Representative: Fundraising Sale Representative Present (aNra) Allergies aspirin (Aspirin) Allergy (Severe, Verified 07/24/25 09:17) swelling Is last menstrual period known: Yes Last menstrual period: 07/15/25 HPI Comments Details: Patient is a premenopausal woman presenting for new patient annual examination. Metal Cutter concerns: None. Regular monthly menses. Menarche age 14 Currently is sexually active. She denies vaginal itching or irritation. STI screening offered; she accepts. She tries to eat healthy (seeing a sat act instructor) and stays active with exercise-, goes to the gym. Denies family history of breast, ovarian or colon cancer. Last pap smear 5 years ago, negative. Mammogram: 2024. [facility] Medical History GERD (gastroesophageal reflux disease) Intestinal malabsorption following gastrectomy BMI greater than 40 Encounter for pre-operative examination Elevated androgen levels Annual physical exam Hypovitaminosis D Hyperparathyroidism Body mass index (BMI) of 45.0-49.9 in adult Right elbow pain Morbid obesity with BMI of 50.0-59.9, adult Super obesity Surgical History History of gastric surgery Hx of tubal ligation History of laparoscopic cholecystectomy History of bilateral breast reduction surgery History of section complicating Family History Father Unknown family medical history Mother Diabetes HTN (hypertension) Brother No problems noted. Daughter Morbid obesity due to excess calories Daughter No problems noted. Son No problems noted. Sister No problems noted. 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 - [employer] Cognitive needs: No Hearing needs: No Vision needs: No Female Reproductive History Menstrual Duration of menses: 3-5 days Date of last menstrual period: 07/15/25 control method: permanent sterilization Permanent Sterilization: BTL Total pregnancies: 3 Full term: 3 Number of Living Children: 3 Date of Mammogram: 03/29/25 (Birad 2) Review of Systems Const All systems reviewed & are unremarkable except as noted in HPI and below Reports as per HPI Eyes Reports no additional complaints ENT Reports no additional complaints Card Reports no additional complaints Resp Reports no additional complaints GI Reports as per HPI and Reports no additional complaints Reports as per HPI Musc Reports no additional complaints Skin/Breast Reports as per HPI Neuro Reports no additional complaints Psych Reports no additional complaints Endo Reports no additional complaints David/Lymph Reports no additional complaints Aller/Immun Reports no additional complaints Physical Exam Vital Signs: Last Vital Signs BP 112/76 07/24/25 09:17 BMI result Body Mass Index 44.3 Const General: cooperative, healthy appearing, no acute distress, well developed and alert Orientation/consciousness: patient oriented x3 HEENT Head: Yes normal to inspection Eyes General: appearance normal, both eyes and all related structures Neck Neck: Yes normal visual inspection Thyroid: Thyroid normal Chest Other: Bilateral breast reduction scarring Chest palpation & inspection: normal inspection of the chest and other (no puckering, dimpling, peau de orange, retraction, discharge, masses) Breast/axilla inspection: normal inspection of the breasts Breast/axilla palpation: normal palpation of the breasts Resp Effort & Inspection: normal respiratory effort GI Inspection: Yes normal to inspection and Yes scar Palpation (GI): Soft to palpation Rectal Exam - Female: deferred General: Yes bladder normal to palpation External Female Exam: normal external appearance and normal appearance of the urethra Speculum Exam - Vagina: normal appearance of the vagina, normal palpation and normal vaginal discharge Speculum Exam - Cervix: normal palpation and Other cervical findings present (Bled slightly with Pap) Bimanual exam- vagina & uterus: normal bimanual exam, normal palpation, uterine size normal, bladder normal to palpation, normal palpation and non-tender Bimanual Exam- Adnexa, other: no masses Skin General skin exam: no rashes or lesions noted Rashes: no rashes Neuro General: patient oriented x3 Cognition (Neuro): normal cognition Extrem General: Yes normal to inspection Psych Attitude: cooperative Thought process: Normal thought process present Assessment & Plan Assessment & Plan (1) Encounter for well woman exam with routine gynecological exam: Code(s): Z01.419 - Encounter for gynecological examination (general) (routine) without abnormal findings Category: Medical (2) Screening for STD (sexually transmitted disease): Code(s): Z11.3 - Encounter for screening for infections with a predominantly sexual mode of transmission Plan: Gc/ct and BV panel obtained. Await results for final plan of care. The patient expressed understanding and agreement with the plan of care. All of her questions and concerns were addressed to the best of my ability. Plan Discussed: Current recommendations for pap smears per ASCCP guidelines. Breast awareness and periodic breast exams. Mammogram yearly. Maintain a healthy lifestyle including a well balanced diet and routine exercise. Colonoscopy >45, or at risk sooner. Menopause verses perimenopause. Menopause is definitive of 1 year of no menses or 12 months in succession. Report any abnormal uterine bleeding in example prolonged episodes, or short intervals less than 24 days. Patient verbalizes understanding and agrees to the plan of care. She was given opportunity to ask questions and all questions were answered to the best of my ability. RTO in one year for annual hot man examination. This note is constructed using voice recognition software. While every effort has been made to ensure accuracy, heater tender errors may have been included. Orders: Orders CT NG by PCR Vag/Cerv Today Z20.2 - Contact with and (suspected) exposure to infections with a predominantly sexual mode of transmission Bacterial Vaginosis Panel Today Z20.2 - Contact with and (suspected) exposure to infections with a predominantly sexual mode of transmission HPV High risk Today Z01.419 - Encounter for gynecological examination (general) (routine) without abnormal findings Pap Smear Today Z01.419 - Encounter for gynecological examination (general) (routine) without abnormal findings Coding Level of Care Code New Pt Prev Care 40-64y(29124) Diagnoses Encounter for well woman exam with routine gynecological exam Z01.419 Screening for STD (sexually transmitted disease) Z11.3
[2025-07-24 09:17] VITALS: BP 112/76; BMI 44.3
--- OUTSIDE RECORDS SUMMARY | 2025-07-24 09:36 | XMS_ITS | Encounter Summary ---
Author Organization [employer] Address [address] [place] [address] [address] [place] [address] Care Team Providers Care Short Filler Bunch Machine Operator Name Role Phone Alexus Scott Primary Care Provider [phone] Encounter Details Date Type Department Care Team (Latest Contact Info) Description 04/14/2019 Abstract [facility] CONVERSIONS Dental, Provider, DDS Social History [...] on filedocumented in this encounter Care Teams Short Filler Bunch Machine Operator Relationship Specialty Start Date End Date Alexus Scott FNP [address] [place] [address] PCP - General Family Medicine 05/27/22 11/01/23 documented as of this encounter
--- OUTSIDE RECORDS SUMMARY | 2025-07-24 09:36 | XMS_ITS | Clinical Summary ---
Author Organization [address] [place] [address] Address [address] [place] [address] Phone Care Team Providers Care Sawmill Worker Name Role Phone Dank Nguyen Primary Care Provider Allergies Active Allergy Reactions Criticality Noted Date Comments Aspirin Anaphylaxis,Swelling High 03/01/2018 Medications ergocalciferol (VITAMIN D-2) 1,250 mcg (50,000 unit) capsule Take 1 capsule (50,000 Units total) by mouth 1 (one) time per week. 12 each 04/06/2025 Active Active Problems Problem Noted Date Diagnosed Date Class 3 severe obesity witho ut serious comorbidity with body mass index (BMI) of 40.0 to 44.9 in adult ([facility] V24, [facility] V28) 07/19/2025 Class 3 severe obesity witho ut serious comorbidity with body mass index (BMI) of 40.0 to 44.9 in adult ([facility] V24, [facility] V28) 05/09/2025 Encounters Date Type Department Care Team Description 07/19/2025 8:00 AM EDT Nutrition Bariatric Surgery - [place] [address] [address] Class 3 severe obesity without serious comorbidity with body mass index (BMI) of 40.0 to 44.9 in adult, unspecified obesity type ([facility] V24, [facility] V28) (Primary Dx) 06/04/2025 7:40 AM EDT - 06/04/2025 11:59 PM EDT Hospital Encounter [facility] Xray [address] [place] [address] Morbid obesity with BMI of 45.0-49.9, adult ([facility] V24, [facility] V28) Discharge Disposition: Home or Self Care 05/09/2025 9:00 AM EDT Nutrition Bariatric Surgery [facility] [place] [address] [address] Class 3 severe obesity without serious comorbidity with body mass index (BMI) of 40.0 to 44.9 in adult, unspecified obesity type ([facility] V24, [facility] V28) (Primary Dx) from Last 3 Months Social History Tobacco [...] 77 03/30/2025 8:33 AM EDT Temperature 36.5 C (97.7 F) 03/30/2025 8:33 AM EDT Respiratory Rate - - Oxygen Saturation - - Inhaled Oxygen Concentration - - Weight 110 kg (243 lb) 07/19/2025 8:06 AM EDT Height 157.5 cm (5' 2 ) 03/30/2025 8:33 AM EDT Body Mass Index 44.45 03/30/2025 8:33 AM EDT Plan of Treatment Upcoming Encounters Date Type Department Care Team (Late st Contact Info) Description 08/06/2025 8:30 AM EDT Office Visit Bariatric Surgery [facility] [address] [address] Carlee Barfield MD [address] [place] [phone] 10/09/2025 8:30 AM EST Nutrition Bariatric Surgery - [place] 175 [facility] [address] [place] [address] Malia Stoll, RD 175 [facility] [address] [place] [address] Health Maintenance Due Date Last Done Comments Breast Cancer Screening 1976 Hepatitis B Vaccines (1 of 3 - 19+ 3-dose series) 1995 Cervical Cancer Screening: Pap Smear 1997 Colorectal Cancer Screening: Colonoscopy 12/27/2023 HIV Screening 12/27/2023 Hepatitis C Screening 12/27/2023 Social Influencers of Health Screening 12/27/2023 COVID-19 Vaccine ( season) 2024 12/06/2021, 01/21/2021, 12/19/2020 Depression Screening 11/29/2024 Influenza Vaccine (#1) 2025 , 09/15/2023, 09/02/2021, Additional history exists Cholesterol Screening (Lipid Panel) 04/05/2030 04/05/2025 DTaP,Tdap,and Td Vaccines (3 - Td or Tdap) 12/03/2030 12/03/2020, 03/27/2016 HIB Vaccines Aged Out No longer eligi [...] 5 Years) and At-Risk Patients (6 to 49 Years) Aged Out No longer eligible based on patient's age to complete this topic RSV Immunization Patients Under 20 months Aged Out No longer eligible based on patient's age to complete this topic Varicella Vaccines Aged Out No longer eligible based on patient's age to complete this topic Procedures Procedure Name Priority Date/Time Associated Diagnosis Comments VITAMIN D 25 HYDROXY Routine 07/06/2025 7:30 AM EDT Low vitamin D level PARATHYROID HORMONE INTACT Routine 07/06/2025 7:30 AM EDT Low vitamin D level XR UGI W SINGLE CONTRAST Routine 06/04/2025 8:23 AM EDT Morbid obesity with BMI of 45.0-49.9, adult ([facility] V24, [facility] V28) LIPID PANEL WITH REFLEX TO DIRECT LDL Routine 04/05/2025 9:04 AM EDT Morbid obesity with BMI of 45.0-49.9, adult ([facility] V24, [facility] V28) from Last 3 Months or Most Recently Relevant to Health Maintenance Results * Vitamin D 25 hydroxy (07/06/2025 7:30 AM EDT) Vit D, 25-Hydroxy 47.7 30.0 - 80.0 ng/mL LAB CHEMISTRY METHOD 07/06/2025 11:06 AM EDT [facility] Blood Venous blood specimen / Unknown Venipuncture / Unknown 07/06/2025 7:30 AM EDT 07/06/2025 7:30 AM EDT us Carlee Barfield MD LAB BLOOD ORDERABLES Fi nal Result [facility] [address] [place] [address], * Parathyroid hormone intact (07/06/2025 7:30 AM EDT) PTH 84.6 18.5 - 88.0 pcg/mL LAB CHEMISTRY METHOD 07/06/2025 11:06 AM EDT [facility] Blood Venous blood specimen / Unknown Venipuncture / Unknown 07/06/2025 7:30 AM EDT 07/06/2025 7:30 AM EDT us Carlee Barfield MD LAB BLOOD ORDERABLES Fi nal Result [facility] [address] [place] [address], [place] [phone] * XR UGI w Single Contrast (06/04/2025 8:23 AM EDT) Anatomical Region Laterality Modality Body Radiographic Rosa ging 06/04/2025 10:5 2 AM EDT Impressions 06/04/2025 11:02 AM EDT Gastric sleeve morphology without obstruction, stricture or ulceration. -------- FINAL REPORT -------- Dictated By: Alessandra Benz Dictated Date: 06/04/2025 10:52 ET Assigned Physician: Alessandra Benz Reviewed and Electronically Signed By: Alessandra Benz Signed Date: 06/04/2025 11:02 ET Workstation ID: [id number] Transcribed By: Self Edit Transcribed Date: 06/04/2025 11:00 ET Narrative 06/04/2025 11:02 AM EDT INDICATION: Weight gain status post aspect sleeve formation FINDINGS: Single-contrast upper GI examination was performed. Remote CT scan of the abdomen and pelvis from September 29, 2022 reviewed. Distal esophagus unremarkable. Stomach demonstrates classic sleeve formation without evidence of stricture or ulceration. Prompt passage of contrast from the esophagus through the stomach into the duodenum. Procedure Note Alessandra Benz MD - 06/04/2025 INDICATION: Weight gain status post aspect sleeve formation FINDINGS: Single-contrast upper GI examination was performed. Remote CTscan of the abdomen and pelvis from September 29, 2022 reviewed. Distal esophagus unremarkable. Stomach demonstrates classic sleeveformation without evidence of stricture or ulceration. Prompt passage ofcontrast from the esophagus through the stomach into the duodenum. IMPRESSION: Gastric sleeve morphology without obstruction, stricture or ulceration. -------- FINAL REPORT -------- Dictated By: Alessandra Benz Dictated Date: 06/04/2025 10:52 ET Assigned Physician: Alessandra Benz Reviewed and Electronically Signed By: Alessandra Benz Signed Date: 06/04/2025 11:02 ET Workstation ID: [id number] Transcribed By: Self Edit Transcribed Date: 06/04/2025 11:00 ET us Carlee Barfield MD IMG FLUOROSCOPY PROCEDU RES Final Result * Lipid panel with reflex to direct LDL (04/05/2025 9:04 AM EDT) Cholesterol 178 0 - 200 mg/dL LAB CHEMISTRY METHOD 04/05/2025 3:19 PM EDT [facility] Triglycerides 93 0 - 150 mg/dL LAB CHEMISTRY METHOD 04/05/2025 3:19 PM EDT [facility] HDL 66 >=40 mg/dL LAB CHEMISTRY METHOD 04/05/2025 3:19 PM EDT [facility] LDL Calculated 93 0 - 100 mg/dL LAB CHEMISTRY METHOD 04/05/2025 3:19 PM EDT [facility] VLDL Cholesterol Jan 18.6 mg/dL LAB CHEMISTRY METHOD 04/05/2025 3:19 PM EDT [facility] Non HDL Chol. (LDL+VLDL) 112 <145 mg/dL LAB CHEMISTRY METHOD 04/05/2025 3:19 PM EDT [facility] Chol/HDL Ratio 2.7 0.0 - 4.4 LAB CHEMISTRY METHOD 04/05/2025 3:19 PM EDT [facility] Blood Venous blood specimen / Unknown Venipuncture / Unknown 04/05/2025 9:04 AM EDT 04/05/2025 9:04 AM EDT us Carlee Barfield MD LAB BLOOD ORDERABLES Fi nal Result [facility] [address] [place] [address], from Last 3 Months or Most Recently Relevant to Health Maintenance Insurance [facility] Care Teams Sawmill Worker Relationship Specialty Start Date End Date Dank Nguyen PA [address] [place] [phone] PCP - General Physician Sketcher 05/04/25
--- OUTSIDE RECORDS SUMMARY | 2025-07-24 09:36 | XMS_ITS | Clinical Summary ---
Author Organization [employer] Address [address] [facility] 7t [place] [address] Care Team Providers Care Education Instructor Name Role Phone Unavailable Primary Care Provider [...] season) 2024 01/21/2021, 12/19/2020 Influenza Vaccine (#1) 2025 , 08/14/2019, 03/27/2016 Zoster Vaccines (1 of 2) [...] HPV mRNA E6/E7 Not Detected NOT DETECTED [facility] Comment: This test was performed using the APTIMA(R) HPV Assay ([employer] This assay detects E6/E7 viral messenger RNA (mRNA) from 14 high-risk HPV types (16,18,31,33,35,39,45,51, 52,56,58,59,66,68). For additional information please refer to: http://education.In[employer]/faq/ABV092u8 (This link is being provided for informational/ educational purposes only.) The analytical performance characteristics of this assay have been determined by [facility] [place], [place]. The modifications have not been cleared or approved by the FDA. This assay has been validated pursuant to the CLIA regulations and is used for clinical purposes. Please note: Effective 08/10/2016, HPV testing will be performed using [employer]'s APTIMA test which targets mRNA. Detecting mRNA instead of DNA, as in older methods, offers significant improvements in specificity. ADDITIONAL TESTING Not indicated () [facility] Comment: Test Performed by [employer], [employer] [facility], [address] [place] [address] Wyatt Perez M.D., Ph.D., Director of Laboratories , [place] [id number] HPV 16 RNA Test not performed [facility] HPV 18/45 RNA Test not performed [facility] 07/21/2019 9:47 AM EDT us Rola Santana DO HISTORICAL/NON ORDERABLE LAB S Final Result [facility] [address] [place] [address] from Last 3 Months or Most Recently Relevant to Health Maintenance
--- OUTSIDE RECORDS SUMMARY | 2025-07-24 09:36 | XMS_ITS | Encounter Summary ---
Author Organization [employer] Address [address] [place] [address] [address] [place] [address] Care Team Providers Care Director Call Name Role Phone Alexus Scott Primary Care Provider [phone] Encounter Details Date Type Department Care Team [...] on filedocumented in this encounter Care Teams Director Call Relationship Specialty Start Date End Date Alexus Scott FNP [address] [place] [address] PCP - General Family Medicine 05/27/22 11/01/23 documented as of this encounter
--- OUTSIDE RECORDS SUMMARY | 2025-07-24 09:36 | XMS_ITS | Encounter Summary ---
Author Organization [employer] Address [address] [place] [address] 7 [place] [address] Care Team Providers Care Histology Teacher Name Role Phone Alexus Scott Primary Care Provider [phone] Encounter Details Date Type Department Care Team (Latest Contact Info) Description 10/18/2020 Abstract [facility] CONVERSIONS Dental, Provider, DDS Social [...] on filedocumented in this encounter Care Teams Histology Teacher Relationship Specialty Start Date End Date Alexus Scott FNP [address] [place] [address] PCP - General Family Medicine 05/27/22 11/01/23 documented as of this encounter
== END 2025-07-24 10:01 | disposition home or self-care (01) ==
LOC: HO.HWS 09:14
PROVIDERS: PCP Physician Assistant; Visit Provider Advanced Practice Midwife
DX: Z01.419 Encounter for gynecological examination (general) (routine) without abnormal findings (principal)
CPT/HCPCS: 99386; 99459

== ENCOUNTER 2025-07-24 09:13 | Outpatient (REF) | payer BC, SELFPAY | END 2025-07-24 09:14 | disposition home or self-care (01) | LOC: HO.LNP 09:13 | PROVIDERS: PCP Physician Assistant; Visit Provider Advanced Practice Midwife | DX: Z01.419 Encounter for gynecological examination (general) (routine) without abnormal findings (principal); Z11.3 Encounter for screening for infections with a predominantly sexual mode of transmission; Z20.2 Contact with and (suspected) exposure to infections with a predominantly sexual mode of transmission; Z11.51 Encounter for screening for human papillomavirus (HPV); Z98.51 Tubal ligation status | CPT/HCPCS: 87626; 88175 ==

== ENCOUNTER 2025-07-24 10:06 | Outpatient (REF) | payer BC, SELFPAY ==
--- OUTSIDE RECORDS SUMMARY | 2025-07-24 10:50 | XMS_ITS | Encounter Summary ---
Author Organization [facility] Address [address] [place] [address] Care Team Providers Care Shirt Presser Name Role Phone Community, Pcp Primary Care Provider Unavailabl e Encounter Details Date Type Department Care Team Description 03/04/2018 Release of Information Medical Records [address] [place] [id number] Abstract, Provider Social History Tobacco Use Types Packs/Day Years Used Date Smoking Tobacco: Never Smokeless Tobacco: Never Sex Assigned at Date Recorded Not on file documented as of this encounter Plan of Treatment Not on file documented as of this encounter Visit Diagnoses Not on filedocumented in this encounter Care Teams Shirt Presser Relationship Specialty Start Date End Date Community, Pcp PCP - General Internal Medicine 03/01/18 documented as of this encounter
--- OUTSIDE RECORDS SUMMARY | 2025-07-24 10:50 | XMS_ITS | Clinical Summary ---
Author Organization [facility] Address [address] [place] [address] Care Team Providers Care Online Advertising Analyst Name Role Phone Community, Pcp Primary Care [...] - - Pulse - - Temperature 36.6 C (97.8 F) 03/01/2018 11:14 AM EDT Respiratory Rate - - Oxygen Saturation - - Inhaled Oxygen Concentration - - Weight - - Height - - Body Mass Index - - Plan of Treatment Health Maintenance Due Date Last Done Comments Covid-19 Vaccine (#1) 05/22/1977 DTAP/TDAP/TD (1 - Tdap) 1995 CHOLESTEROL SCREENING 1996 CERVICAL CANCER SCREENING 1997 BASELINE HEALTH EXAM 40-64 2016 MAMMOGRAM 2016 BMI CHECK/ADVISE 11/29/2024 INFLUENZA (#1) 2025 PNEUMOCOCCAL VACCINE FOR HIGH RISK PATIENTS (#1) 11/21 Care Teams Online Advertising Analyst Relationship Specialty Start Date End Date Community, Pcp PCP - General Internal Medicine 03/01/18
[2025-07-24 14:56] LABS: Bacterial Vaginosis PCR POSITIVE (Negative); Candida Group PCR NOT DETECTED (Not Detect); Candida glab krusei PCR NOT DETECTED (Not Detect); Trichomonas vaginalis PCR NOT DETECTED (Not Detect)
[2025-07-24 15:27] LABS: CT PCR NOT DETECTED (Not Detect.); NG PCR NOT DETECTED (Not Detect.)
== END 2025-07-24 10:07 | disposition home or self-care (01) ==
LOC: HO.LAB 10:06
PROVIDERS: Visit Provider Advanced Practice Midwife
DX: Z20.2 Contact with and (suspected) exposure to infections with a predominantly sexual mode of transmission (principal); Z11.3 Encounter for screening for infections with a predominantly sexual mode of transmission; Z11.8 Encounter for screening for other infectious and parasitic diseases
CPT/HCPCS: 81515; 87491; 87591

== ENCOUNTER 2025-08-02 08:07 | Outpatient (AMB) | payer BC, SELFPAY ==
--- OUTSIDE RECORDS SUMMARY | 2025-08-02 08:24 | XMS_ITS | Clinical Summary ---
Author Organization [employer] Address [address] [facility] 7t [place] [address] Care Team Providers Care Lacing String Cutter Name Role Phone Unavailable Primary Care Provider [...] was performed using the APTIMA(R) HPV Assay ([employer] This assay detects E6/E7 viral messenger RNA (mRNA) from 14 high-risk HPV types (16,18,31,33,35,39,45,51, 52,56,58,59,66,68). For additional information please refer to: http://education.[employer]/faq/CCC599f4 (This link is being provided for informational/ educational purposes only.) The analytical performance characteristics of this assay have been determined by [employer] [place], [place]. The modifications have not been cleared or approved by the FDA. This assay has been validated pursuant to the CLIA regulations and is used for clinical purposes. Please note: Effective 08/10/2016, HPV testing will be performed using [employer]'s APTIMA test which targets mRNA. Detecting mRNA instead of DNA, as in older methods, offers significant improvements in specificity. ADDITIONAL TESTING Not indicated () [facility] Comment: Test Performed by [employer], [employer] [facility], [address] [place] [address] Wyatt Perez M.D., Ph.D., Director of Laboratories , [place] [id number] HPV 16 RNA Test not performed [facility] HPV 18/45 RNA Test not performed [facility] 07/21/2019 9:47 AM EDT us Rola Santana DO HISTORICAL/NON ORDERABLE LAB S Final Result [facility] [address] from Last 3 Months or Most Recently Relevant to Health Maintenance
--- OUTSIDE RECORDS SUMMARY | 2025-08-02 08:24 | XMS_ITS | Encounter Summary ---
Author Organization [employer] Address [address] [place] [address] 7 [place] [address] Care Team Providers Care Cisco Network Architect Name Role Phone Alexus Scott Primary Care Provider [phone] Encounter Details Date Type Department Care Team [...] on filedocumented in this encounter Care Teams Cisco Network Architect Relationship Specialty Start Date End Date Alexus Scott FNP [address] [place] [address] PCP - General Family Medicine 05/27/22 11/01/23 documented as of this encounter
--- OUTSIDE RECORDS SUMMARY | 2025-08-02 08:24 | XMS_ITS | Encounter Summary ---
Author Organization [employer] Address [address] [place] [address] [address] [place] [address] Care Team Providers Care Pattern Perforating Machine Operator Name Role Phone Alexus Scott [...] on filedocumented in this encounter Care Teams Pattern Perforating Machine Operator Relationship Specialty Start Date End Date Alexus Scott FNP [address] [place] [address] PCP - General Family Medicine 05/27/22 11/01/23 documented as of this encounter
--- OUTSIDE RECORDS SUMMARY | 2025-08-02 08:24 | XMS_ITS | Encounter Summary ---
Author Organization [employer] Address [address] [place] [address] 7 [place] [address] Care Team Providers Care Dispatcher Tugboat Name Role Phone Alexus Scott Primary Care Provider [phone] Encounter Details Date Type Department Care Team (Latest Contact Info) Description 04/14/2019 Abstract [facility] CONVERSIONS Dental, Provider, DDS Social History [...] on filedocumented in this encounter Care Teams Dispatcher Tugboat Relationship Specialty Start Date End Date Alexus Scott FNP [address] [place] [address] PCP - General Family Medicine 05/27/22 11/01/23 documented as of this encounter
--- OUTSIDE RECORDS SUMMARY | 2025-08-02 08:24 | XMS_ITS | Clinical Summary ---
Author Organization [address] [place] [address] Address [address] [place] [address] Phone Care Team Providers Care Office Copy Selector Name Role Phone Dank Nguyen Primary Care [...] (BMI) of 40.0 to 44.9 in adult ([facility] V24, [facility] V28) 07/19/2025 Class 3 severe obesity witho ut serious comorbidity with body mass index (BMI) of 40.0 to 44.9 in adult ([facility] V24, [facility] V28) 05/09/2025 Encounters Date Type Department Care Team Description 07/19/2025 8:00 AM EDT Nutrition Bariatric Surgery - [place] [address] [address] Class 3 severe obesity without serious comorbidity with body mass index (BMI) of 40.0 to 44.9 in adult, unspecified obesity type ([facility] V24, [facility] V28) (Primary Dx) 06/04/2025 7:40 AM EDT - 06/04/2025 11:59 PM EDT Hospital Encounter [facility] Xray [address] [place] [address] Morbid obesity with BMI of 45.0-49.9, adult ([facility] V24, [facility] V28) Discharge Disposition: Home or Self Care 05/09/2025 9:00 AM EDT Nutrition Bariatric Surgery - [place] [address] [address] Class 3 severe obesity without serious comorbidity with body mass index (BMI) of 40.0 to 44.9 in adult, unspecified obesity type ([facility] V24, [facility] V28) (Primary Dx) from Last 3 Months [...] 8:30 AM EDT Office Visit Bariatric Surgery [facility] [address] [address] Carlee Barfield MD [address] [place] [phone] 10/09/2025 8:30 AM EST Nutrition Bariatric Surgery - [place] 175 [facility] [address] [place] [address] Malia Stoll, RD 175 [facility] [address] [place] [address] Health Maintenance Due Date Last Done Comments Breast Cancer Screening 1976 Hepatitis B Vaccines (1 of 3 - 19+ 3-dose series) 1995 Cervical Cancer Screening: Pap Smear 1997 Colorectal Cancer Screening: Colonoscopy 12/27/2023 HIV Screening 12/27/2023 Hepatitis C Screening 12/27/2023 Social Influencers of Health Screening 12/27/2023 Depression Screening 11/29/2024 COVID-19 Vaccine ( season) 2025 12/06/2021, 01/21/2021, 12/19/2020 Influenza Vaccine (#1) 2025 , 09/15/2023, 09/02/2021, [...] Morbid obesity with BMI of 45.0-49.9, adult ([facility] V24, [facility] V28) LIPID PANEL WITH REFLEX TO DIRECT LDL Routine 04/05/2025 9:04 AM EDT Morbid obesity with BMI of 45.0-49.9, adult ([facility] V24, [facility] V28) from Last 3 Months or Most Recently Relevant to Health Maintenance Results * Vitamin D 25 hydroxy (07/06/2025 7:30 AM EDT) Vit D, 25-Hydroxy 47.7 30.0 - 80.0 ng/mL LAB CHEMISTRY METHOD 07/06/2025 11:06 AM EDT [facility] Blood Venous blood specimen / Unknown Venipuncture / Unknown 07/06/2025 7:30 AM EDT 07/06/2025 7:30 AM EDT us Carlee Barfield MD LAB BLOOD ORDERABLES Fi nal Result [facility] [address] [place] [address], * Parathyroid hormone intact (07/06/2025 7:30 AM EDT) PTH 84.6 18.5 - 88.0 pcg/mL LAB CHEMISTRY METHOD 07/06/2025 11:06 AM EDT [facility] Blood Venous blood specimen / Unknown Venipuncture / Unknown 07/06/2025 7:30 AM EDT 07/06/2025 7:30 AM EDT us Carlee Barfield MD LAB BLOOD ORDERABLES Fi nal Result [facility] ([facility]) [facility] [address] [place] [address], [place] [phone] * XR UGI w Single Contrast (06/04/2025 [...] Signed Date: 06/04/2025 11:02 ET Workstation ID: [id number] Transcribed By: Self Edit Transcribed Date: 06/04/2025 [...] Signed Date: 06/04/2025 11:02 ET Workstation ID: [id number] Transcribed By: Self Edit Transcribed Date: 06/04/2025 11:00 ET us Carlee Barfield MD IMG FLUOROSCOPY PROCEDU RES Final Result * Lipid panel with reflex to direct LDL (04/05/2025 9:04 AM EDT) Cholesterol 178 0 - 200 mg/dL LAB CHEMISTRY METHOD 04/05/2025 3:19 PM EDT [facility] Triglycerides 93 0 - 150 mg/dL LAB CHEMISTRY METHOD 04/05/2025 3:19 PM EDT [facility] HDL 66 >=40 mg/dL LAB CHEMISTRY METHOD 04/05/2025 3:19 PM EDT [facility] LDL Calculated 93 0 - 100 mg/dL LAB CHEMISTRY METHOD 04/05/2025 3:19 PM EDT [facility] VLDL Cholesterol Jan 18.6 mg/dL LAB CHEMISTRY METHOD 04/05/2025 3:19 PM EDT [facility] Non HDL Chol. (LDL+VLDL) 112 <145 mg/dL LAB CHEMISTRY METHOD 04/05/2025 3:19 PM EDT [facility] Chol/HDL Ratio 2.7 0.0 - 4.4 LAB CHEMISTRY METHOD 04/05/2025 3:19 PM EDT [facility] Blood Venous blood specimen / Unknown Venipuncture / Unknown 04/05/2025 9:04 AM EDT 04/05/2025 9:04 AM EDT us Carlee Barfield MD LAB BLOOD ORDERABLES Fi nal Result [facility] [address] [place] [address], from Last 3 Months or Most Recently Relevant to Health Maintenance Insurance [facility] Care Teams Office Copy Selector Relationship Specialty Start Date End Date Dank Nguyen PA [address] [place] [phone] PCP - General Physician Slat Basket Maker Machine 05/04/25
[2025-08-02 08:31] VITALS: BP 110/70; PULSE 62; O2SAT 99; BMI 43.9
--- NOTE | 2025-08-02 08:31 | A.OFFPC_ITS ---
Vital Signs 08/02/25 08:31 Height 5 ft 2 in Weight 240 lb BMI 43.9 BP 110/70 Blood Pressure Location Lt brachial Position Sitting Pulse 62 Pulse Source Pulse Oximeter Pulse Oximetry (%) 99 Oxygen Delivery Method Room Air Intake Visit Reasons: f/u weight/ Anemia Allergies aspirin (Aspirin) Allergy (Severe, Verified 08/02/25 08:48) swelling Medication List - Last Reconciled 08/02/25 by Dank Nguyen PA-C cholecalciferol (vitamin D3) 50 mcg PO DAILY 90 days ferrous sulfate 325 mg PO BID 30 days metformin ER 500 mg PO DAILY 90 days Tobacco use date assessed: 01/30/25 Dental Screening Dental Screen Date: 01/30/25 HPI f/u weight/ Anemia HPI Details Patient is a 49 year-old female here today for a follow up. ? ? Patient has a past medical history of obesity and is status post bariatric surgery with hernia repair and January of 2021. Class 3 obesity: The patient has been actively working on weight management, attending sessions with a human resources assistant at [facility] for guidance. Despite efforts, she finds it challenging to lose weight, having lost only 3 pounds recently. She is considering surgical options and plans to discuss this with her doctor next week. .. Iron-deficiency anemia: She has a history of iron deficiency anemia, which was previously identified and managed with iron supplementation. Her hemoglobin and red blood cell counts were normal in March, indicating effective management of the anemia. .. Hirsutism: Has follow-up with OBGYN here in [place]. Has been started on metformin and reports she feels better. Her A1c is great at 5.4. Has lost a few lb since last office visit. [facility] Medical History GERD (gastroesophageal reflux disease) Intestinal malabsorption following gastrectomy BMI greater than 40 Encounter for pre-operative examination Elevated androgen levels Annual physical exam Hypovitaminosis D Hyperparathyroidism Body mass index (BMI) of 45.0-49.9 in adult Right elbow pain Morbid obesity with BMI of 50.0-59.9, adult Super obesity Surgical History History of gastric surgery Hx of tubal ligation History of laparoscopic cholecystectomy History of bilateral breast reduction surgery History of section complicating Family History Father Unknown family medical history Mother Diabetes HTN (hypertension) Brother No problems noted. Daughter Morbid obesity due to excess calories Daughter No problems noted. Son No problems noted. Sister No problems noted. 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 1. Little interest or pleasure in doing things: not at all 2. Feeling down, depressed, or hopeless: not at all 3. Trouble falling or staying asleep, or sleeping too much: more than half the days 4. Feeling tired or having little energy: not at all 5. Poor appetite or overeating: several days 6. Feeling bad about yourself - or that you are a failure or have let yourself or your family down: not at all 7. Trouble concentrating on things, such as reading the newspaper or watching television: several days 8. Moving or speaking so slowly that other people could have noticed. Or the opposite - being so fidgety or restless that you have been moving around a lot more than usual: not at all 9. Thoughts that you would be better off or of hurting yourself in some way: not at all Total score: 4 Depression Screening Interpretation: Positive Depression Screening Follow-up: Existing condition and Declines treatment Depression Screening Done: Yes 82993 - PHQ-9 Billing: Yes Source: Developed by Drs. Mani Billings, Thelma Edgar, Tha Roger and colleagues, with an educational mali from [employer] Thrive Questionnaire Date Thrive assessed: 01/30/25 I am a: Patient What is your living situation today?: I have a steady place to live Within the past 12 months, did the food you bought not last and you didn't have the money to get more?: Never true Within the past 12 months, did you worry whether your food would run out before you got money to buy more?: Sometimes True Do you have trouble paying for medicines?: No Do you have trouble getting transportation to medical appointments?: No Do you have trouble paying your heating and electricity bill?: No Do you have trouble taking care of your child, family member or friend?: No Do you have trouble with day-to-day activities such as bathing, preparing meals, shopping, managing finances, etc.?: No Are you currently unemployed and looking for a job?: No Are you interested in more education?: No Please select the resources that you would like help with: None Currently or been in a relationship where the following occur: No concerns reported THRIVE Score: 1 AUDIT C Alcohol Use Questionnaire (AUDIT-C) 1. How often do you have a drink containing alcohol?: Monthly or less 2. How many drinks containing alcohol do you have on a typical day when you are drinking?: 1 or 2 3. How often do you have six or more drinks on one occasion?: Less than monthly Total Score: 2 ALYSSIA-7 AMB Questionnaire ALYSSIA-7 Date ALYSSIA - 7 assessed: 01/30/25 Source: Developed by Drs. Mani Billings, Thelma Edgar, Tha Roger and colleagues, with an educational mali from [employer] Review of Systems Const Denies headache(s) Eyes Denies loss of vision ENT Denies vertigo, Denies dizziness, Denies headache(s) and Denies sore throat Card Denies chest pain, Denies leg edema and Denies lightheadedness Resp Denies cough, Denies hemoptysis and Denies wheezing GI Denies abdominal pain, Denies melena, Denies constipation, Denies diarrhea and Denies vomiting Denies urinary frequency, Denies dysuria and Denies urinary urgency Musc Denies arthralgias, Denies joint swelling, Denies numbness and Denies tingling Neuro Denies Abnormal speech present, Denies behavioral changes, Denies vertigo, Denies dizziness, Denies headache(s), Denies loss of vision, Denies memory loss, Denies numbness and Denies tingling Psych Denies anxiety, Denies behavioral changes, Denies depression, Denies memory loss and Denies panic attacks David/Lymph Denies easy bleeding and Denies easy bruising Aller/Immun Denies wheezing Physical exam (Primary Care) Vital Signs: Last Vital Signs Pulse 62 08/02/25 08:31 BP 110/70 08/02/25 08:31 Pulse Ox 99 08/02/25 08:31 Oxygen Delivery Method Room Air 08/02/25 08:31 BMI result Body Mass Index 43.9 BMI Assessment/Plan discussion: High BMI High, discussed plan: lifestyle, weight reduction, dietary and physical activity Tobacco/Smoking Status: Tobacco use Status Tobacco use date assessed 01/30/25 08/02/25 08:32 Patient Tobacco Use Status Never used Tobacco 08/02/25 08:32 Tobacco use type Cigarette 08/02/25 08:32 e-Cigarette/Vaping Use Never Used 08/02/25 08:32 PHQ-9: PHQ-9 Score PHQ-9: Total score 4 08/02/25 08:44 Depression Screening Interpretation: Positive Depression Screening Follow-up: Existing condition and Declines treatment Thrive Assessment: Date of Thrive Assessment Date Thrive assessed 01/30/25 08/02/25 08:32 Currently or been in a relationship where the following occur: No concerns reported Const Other: Obese General: healthy appearing, no acute distress, alert and awake Nutritional Appearance: well nourished Orientation/consciousness: oriented to person, oriented to place and oriented to time HENMT Ears: TM's normal bilaterally General nose exam: Normal nasal mucous membranes and turbinates present Eyes Conjunctivae: conjunctivae normal Sclerae: sclerae normal Pupils: Equal, round and reactive pupils present Neck Neck: Yes no lymphadenopathy and Yes no JVD Thyroid: Thyroid normal Carotids: no bruits Resp Effort & Inspection: normal respiratory effort and not tachypneic Auscultation: no crackles, no rales, no rhonchi and no wheezes Cardio Rate: regular rate Rhythm: regular rhythm Heart sounds: no murmurs and normal S1 and S2 GI Palpation (GI): Soft to palpation, nontender, no hepatomegaly and no splenomegaly Auscultation: normal bowel sounds Skin General skin exam: no rashes or lesions noted and dry skin Neuro General: oriented to person, oriented to place and oriented to time Cranial nerves: Yes Equal, round and reactive pupils present Speech: No Abnormal speech present Gait exam (Neuro): Normal gait present Motor exam (neuro): no tremor noted Extrem Right upper extremity: full ROM Left upper extremity: full ROM Right lower extremity: full ROM; no edema Left lower extremity: full ROM; no edema Psych Mental Status: mental status grossly normal Speech and movement: Normal speech and movement present Affect: normal affect Attitude: cooperative Thought process: Normal thought process present Results AMB Hemoglobin A1c AMB Hemoglobin A1c 5.4 % Last Edit by Angelina Rich CMA on 08/02/25 08 :44 Results Reviewed Results Reviewed: Laboratory Last Values Hgb A1c (Clinic) 5.4 % (4.0-6.0) 08/02/25 08:32 Coding Level of Care Code Est Pt Level 4 (32479) Diagnoses Class 3 obesity E66.813 S/P laparoscopic sleeve gastrectomy Z98.84 Hyperparathyroidism E21.3 Microcytic anemia D50.9 Hirsutism L68.0 Additional Codes PHQ-9 - 96305 - PHQ-9 Billing: Yes ([id number]) Assessment & Plan Assessment & Plan (1) Class 3 obesity: Code(s): E66.813 - Obesity, class 3 Category: Medical Plan: Patient does understand her BMI is over 40. Unfortunately has had gastric sleeve in the past to which she was able to lose weight though unfortunately has gained back the weight. She has lost a few lb since last office visit. She is speaking with a new bariatric surgery clinic in [place] ([facility]) She is considering bariatric surgery again (2) S/P laparoscopic sleeve gastrectomy: Code(s): Z98.84 - Bariatric surgery status Category: Surgical Plan: Patient bariatric surgery has failed. Speaking with bariatric surgery at [facility] (3) Hyperparathyroidism: Comment: sees endocrinology-f/u in February 2021-patient and [facility] office states was told ok to proceed Code(s): E21.3 - Hyperparathyroidism, unspecified Category: Medical Plan: Continues on vitamin-D supplementation, Will follow PTH and calcium (4) Microcytic anemia: Code(s): D50.9 - Iron deficiency anemia, unspecified Category: Medical Plan: Most recent CBC and iron studies stable. She continues on oral iron supplementation and reports she feels much better (5) Hirsutism: Code(s): L68.0 - Hirsutism Category: Medical Plan: Has followed up with OBGYN here in [place]. We have started metformin due to her hirsutism. Patient reports she feels better and has been making better lifestyle and dietary choices. Orders: Orders Complete Blood Count no Diff Today D50.9 - Iron deficiency anemia, unspecified Vitamin B12 and Folate Today E53.8 - Deficiency of other specified B group vitamins Parathyroid Hormone Intact Today E21.3 - Hyperparathyroidism, unspecified AMB Hemoglobin A1c Today Z13.9 - Encounter for screening, unspecified IRON PROFILE Today D50.9 - Iron deficiency anemia, unspecified Comprehensive [place]. Panel Fast Today Z13.1 - Encounter for screening for diabetes mellitus
== END 2025-08-02 08:57 | disposition home or self-care (01) ==
LOC: HO.HMCH 08:07
PROVIDERS: PCP Physician Assistant; Visit Provider Physician Assistant
DX: E21.3 Hyperparathyroidism, unspecified (principal); E66.813 Obesity, class 3; Z68.41 Body mass index [BMI] 40.0-44.9, adult; Z98.84 Bariatric surgery status; D50.9 Iron deficiency anemia, unspecified; L68.0 Hirsutism; Z13.9 Encounter for screening, unspecified

== ENCOUNTER → 2025-08-02 08:07 | Outpatient (BNVA) | payer BC, SELFPAY | PROVIDERS: PCP Physician Assistant; Visit Provider Physician Assistant | DX: E66.813 Obesity, class 3 (principal); D50.9 Iron deficiency anemia, unspecified; L68.0 Hirsutism; E21.3 Hyperparathyroidism, unspecified; Z98.84 Bariatric surgery status | CPT/HCPCS: 83036; 96127 ==